=== PATIENT | female | born 1995 | race Caucasian/White ===

== ENCOUNTER 2017-05-25 12:50 | Emergency (ER) | payer OTHER ==
--- NOTE | 2017-05-25 13:58 | ED ---
General Adult HPI - General Chief complaint: Nausea/Vomiting/Diarrhea Stated complaint: Vomiting, chest pain x 3 days Time Seen by Provider: 05/25/17 13:25 Source: patient, RN notes reviewed Mode of arrival: ambulatory Limitations: no limitations - History of Present Illness Initial comments: Patient is a 21-year-old female who presents emergency room today with chief complaint chest pain over the last 2 days. She does admit that she recently miscarried. She states she was seen [facility] for this. States she had an ultrasound on there 2 days ago. She states she was discharged clear she is expressing some chest pain she describes it as sharp located in the upper chest. Denies any radiation. Does admit to some cough and congestion. Patient denies any other complaints at this time. States vaginal bleeding has decreased. Spotting at times. Denies with swelling or pain. Patient denies any recent fever, chills, shortness of breath, back pain, nausea or vomiting, numbness or tingling, dysuria or hematuria, constipation or diarrhea, headaches or visual changes, or any other complaints. - Related Data Home Medications Medication Instructions Recorded Confirmed Ibuprofen [Motrin] 400 mg PO Q6HR PRN 05/25/17 05/25/17 Previous Rx's Medication Instructions Recorded Ibuprofen [Motrin] 600 mg PO Q6HR PRN #40 day 05/25/17 Allergies Allergy/AdvReac Type Severity Reaction Status Date / Time Penicillins Allergy Unknown Verified 05/25/17 13:21 Review of Systems ROS Statement: Those systems with pertinent positive or pertinent negative responses have been documented in the HPI. ROS Other: All systems not noted in ROS Statement are negative. Past Medical History Past Medical History: No Reported History History of Any Multi-Drug Resistant Organisms: None Reported Past Surgical History: No Surgical Hx Reported Past Psychological History: No Psychological Hx Reported Smoking Status: Never smoker Past Alcohol Use History: None Reported Past Drug Use History: None Reported General Exam - General Exam Comments Initial Comments: General: The patient is awake and alert, in no distress, and does not appear acutely ill. Eye: Pupils are equal, round and reactive to light, extra-ocular movements are intact. No nystagmus. There is normal conjunctiva bilaterally. No signs of icterus. Ears, nose, mouth and throat: There are moist mucous membranes and no oral lesions. Neck: The neck is supple, there is no tenderness or JVD. Cardiovascular: There is a regular rate and rhythm. No murmur, rub or gallop is appreciated. Chest pain reproduced on palpation to the anterior chest wall. Respiratory: Lungs are clear to auscultation, respirations are non-labored, breath sounds are equal. No wheezes, stridor, rales, or rhonchi. Gastrointestinal: Soft, non-distended, non-tender abdomen without masses or organomegaly noted. There is no rebound or guarding present. No CVA tenderness. Bowel sounds are unremarkable. Musculoskeletal: Normal ROM, no tenderness. Strength 5/5. Sensation intact. Pulses equal bilaterally 2+. Neurological: A&O x 3. CN II-XII intact, There are no obvious motor or sensory deficits. Coordination appears grossly intact. Speech is normal. Skin: Skin is warm and dry and no rashes or lesions are noted. Psychiatric: Cooperative, appropriate mood & affect, normal judgment. Limitations: no limitations Course Vital Signs 05/25/17 05/25/17 13:18 14:59 Temperature 98.1 F 99.7 F H Pulse Rate 93 80 Respiratory 17 18 Rate Blood Pressure 110/89 135/61 O2 Sat by Pulse 97 96 Oximetry EKG Findings - EKG Comments: EKG Findings:: EKG performed at 1332: A 12-lead EKG was performed and interpreted by me as showing the following: Rate is 86, and rhythm is normal sinus. There are normal QRS complexes and normal R-wave progression. ST segments have no elevation or depression, and LA segments appear normal. Medical Decision Making - Medical Decision Making Patient reexamined at this time shows no signs of distress. She is resting comfortably text home. Patient's chest x-rays negative. Her labs been reviewed. Negative d-dimer. Negative cardiac enzymes. Her remaining labs unremarkable. Patient's ultrasound that was performed at [facility] on the May 23 2017 has been reviewed and shows no impression 1. No acute intrapelvic process. 2. Complex cystic lesion in the right ovary compatible with a dermoid. 3. No evidence of ovarian torsion. As read by radiologist Dr. Quiñonez. At this time patient will be discharged home advised follow-up the family doctor. Advised to continue with anti-inflammatories for pain. Advised to return if symptoms increase or worsen. - Lab Data Result diagrams: 05/25/17 13:53 05/25/17 13:53 Lab Results 05/25/17 05/25/17 05/25/17 Range/Units 13:53 13:53 13:53 WBC 10.9 (4.0-11.0) k/uL RBC 4.74 (3.80-5.40) m/uL Hgb 14.0 (11.4-16.0) gm/dL Hct 41.2 (34.0-46.0) % MCV 86.8 (80.0-100.0) fL MCH 29.5 (25.0-35.0) pg MCHC 34.0 (31.0-37.0) g/dL RDW 13.1 (11.5-15.5) % Plt Count 559 H (150-450) k/uL Neutrophils % 64 % Lymphocytes % 24 % Monocytes % 5 % Eosinophils % 4 % Basophils % 1 % Neutrophils # 7.0 (1.3-7.7) k/uL Lymphocytes # 2.6 (1.0-4.8) k/uL Monocytes # 0.6 (0-1.0) k/uL Eosinophils # 0.4 (0-0.7) k/uL Basophils # 0.1 (0-0.2) k/uL D-Dimer (<0.60) mg/L FEU Sodium 138 (137-145) mmol/L Potassium 4.7 (3.5-5.1) mmol/L Chloride 100 (98-107) mmol/L Carbon Dioxide 27 (22-30) mmol/L Anion Gap 11 mmol/L BUN 13 (7-17) mg/dL Creatinine 0.60 (0.52-1.04) mg/dL Est GFR (MDRD) Af Amer >60 (>60 ml/min/1.73 sqM) Est GFR (MDRD) Non-Af >60 (>60 ml/min/1.73 sqM) Glucose 96 (74-99) mg/dL Calcium 10.1 (8.4-10.2) mg/dL Total Bilirubin 0.4 (0.2-1.3) mg/dL AST 116 H (14-36) U/L ALT 150 H (9-52) U/L Alkaline Phosphatase 88 (38-126) U/L Total Creatine Kinase 104 (30-135) U/L CK-MB (CK-2) 0.6 (0.0-2.4) ng/mL CK-MB (CK-2) Rel Index 0.6 Troponin I <0.012 (0.000-0.034) ng/mL Total Protein 8.1 (6.3-8.2) g/dL Albumin 4.4 (3.5-5.0) g/dL Urine HCG, Qual (Not Detectd) 05/25/17 05/25/17 Range/Units 13:53 14:23 WBC (4.0-11.0) k/uL RBC (3.80-5.40) m/uL Hgb (11.4-16.0) gm/dL Hct (34.0-46.0) % MCV (80.0-100.0) fL MCH (25.0-35.0) pg MCHC (31.0-37.0) g/dL RDW (11.5-15.5) % Plt Count (150-450) k/uL Neutrophils % % Lymphocytes % % Monocytes % % Eosinophils % % Basophils % % Neutrophils # (1.3-7.7) k/uL Lymphocytes # (1.0-4.8) k/uL Monocytes # (0-1.0) k/uL Eosinophils # (0-0.7) k/uL Basophils # (0-0.2) k/uL D-Dimer 0.42 (<0.60) mg/L FEU Sodium (137-145) mmol/L Potassium (3.5-5.1) mmol/L Chloride (98-107) mmol/L Carbon Dioxide (22-30) mmol/L Anion Gap mmol/L BUN (7-17) mg/dL Creatinine (0.52-1.04) mg/dL Est GFR (MDRD) Af Amer (>60 ml/min/1.73 sqM) Est GFR (MDRD) Non-Af (>60 ml/min/1.73 sqM) Glucose (74-99) mg/dL Calcium (8.4-10.2) mg/dL Total Bilirubin (0.2-1.3) mg/dL AST (14-36) U/L ALT (9-52) U/L Alkaline Phosphatase (38-126) U/L Total Creatine Kinase (30-135) U/L CK-MB (CK-2) (0.0-2.4) ng/mL CK-MB (CK-2) Rel Index Troponin I (0.000-0.034) ng/mL Total Protein (6.3-8.2) g/dL Albumin (3.5-5.0) g/dL Urine HCG, Qual Not Detected (Not Detectd) Disposition Clinical Impression: Costochondritis, acute Disposition: HOME SELF-CARE Condition: Good Instructions: Costochondritis (ED) Additional Instructions: Please use medication as discussed. Please follow-up with family doctor in the next 2 days of symptoms have not improved. Please return to emergency room if the symptoms increase or worsen or for any other concerns. Prescriptions: Ibuprofen [Motrin] 600 mg PO Q6HR PRN #40 day PRN Reason: Pain Referrals: None,Stated [Primary Care Provider] - 1-2 days Felicitas Dickinson MD [REFERRING] - 1-2 days Time of Disposition: 15:38
[2017-05-25 14:21] LABS: Basophils # (A) 0.1 k/uL (0-0.2); Basophils % (A) 1 %; CH 30.3; CHCM 35.1; Eosinophils # (A) 0.4 k/uL (0-0.7); Eosinophils % (A) 4 %; HCT 41.2 % (34.0-46.0); HDW 2.71; Luc # (Auto) 0.24; Luc % (Auto) 2; Lymphocytes # (A) 2.6 k/uL (1.0-4.8); Lymphocytes % (A) 24 %; MCH 29.5 pg (25.0-35.0); MCV 86.8 fL (80.0-100.0); Monocytes # (A) 0.6 k/uL (0-1.0); Monocytes % (A) 5 %; Neutrophils % (A) 64 %; RBC 4.74 m/uL (3.80-5.40); RDW 13.1 % (11.5-15.5); WBC 10.9 k/uL (4.0-11.0); WBC (Perox) 9.86
[2017-05-25 14:32] LABS: ALT 150 U/L (9-52); AST 116 U/L (14-36); Alkaline Phosphatase 88 U/L (38-126); Anion Gap 11 mmol/L; Blood Urea Nitrogen 13 mg/dL (7-17); Calcium 10.1 mg/dL (8.4-10.2); Carbon Dioxide 27 mmol/L (22-30); Chloride 100 mmol/L (98-107); Glucose 96 mg/dL (74-99); Non-African American GFR(MDRD) >60 (>60 ml/min/1.73 sqM); Potassium 4.7 mmol/L (3.5-5.1); Sodium 138 mmol/L (137-145); Total Bilirubin 0.4 mg/dL (0.2-1.3); Total Protein 8.1 g/dL (6.3-8.2)
[2017-05-25 14:42] LABS: Creatine Kinase 104 U/L (30-135)
[2017-05-25 14:56] LABS: Creatine Kinase MB 0.6 ng/mL (0.0-2.4); Troponin I <0.012 ng/mL (0.000-0.034)
[2017-05-25 15:01] VITALS: BP 135/61; PULSE 80; RESP 18; TEMP 99.7
--- NOTE | 2017-05-25 15:31 | XR ---
EXAMINATION TYPE: XR chest 2V DATE OF EXAM: 05/25/2017 COMPARISON: NONE INDICATION: Cough TECHNIQUE: Frontal and lateral views of the chest are obtained. FINDINGS: The heart size is normal. The pulmonary vasculature is normal. The lungs are clear. IMPRESSION: 1. No acute pulmonary process.
== END 2017-05-25 15:52 | disposition home or self-care (01) ==
LOC: EC 12:50
DX: M94.0 Chondrocostal junction syndrome [Tietze] (principal); Z88.0 Allergy status to penicillin
CPT/HCPCS: 36415; 71020; 80053; 81025; 82550; 82553; 84484; 85025; 85379; 93005; 99284

== ENCOUNTER 2017-05-26 22:30 | Emergency (ER) | payer OTHER ==
[2017-05-27] MEDS ORDERED: SODIUM CHLORIDE 0.9% 1,000 ML IV STA (00:01)
[2017-05-27] MEDS ORDERED: DEXAMETHASONE SOD PHOSPHATE 10 MG/ML 1 ML VIAL IM STA (00:01)
[2017-05-27] MEDS ORDERED: ACETAMINOPHEN TAB 325 MG TAB PO STA (00:01)
[2017-05-27] MEDS ORDERED: IPRATROPIUM-ALBUTEROL 3 ML NEB INHALATION STA (00:01)
[2017-05-27 00:33] LABS: Appearance,Urine Clear (Clear); Bacteria,Urine Few /hpf; Bilirubin,Urine Negative (Negative); Blood,Urine Moderate (Negative); Color,Urine Light Yellow; Glucose,Urine (UA) Negative (Negative); Ketones,Urine Negative (Negative); Leukocyte Esterase,Urine Moderate (Negative); Nitrite,Urine Negative (Negative); Protein,Urine Negative (Negative); RBC,Urine 15 /hpf (0-5); Specific Gravity,Urine 1.006 (1.001-1.035); Squamous Epithelial Cell,Urine 2 /hpf (0-4); Urobilinogen,Urine <2.0 mg/dL (<2.0); WBC,Urine 7 /hpf (0-5)
[2017-05-27 00:46] LABS: Basophils # (A) 0.1 k/uL (0-0.2); Basophils % (A) 1 %; Eosinophils # (A) 0.4 k/uL (0-0.7); Eosinophils % (A) 3 %; HCT 41.7 % (34.0-46.0); HGB 13.9 gm/dL (11.4-16.0); Lymphocytes # (A) 2.6 k/uL (1.0-4.8); Lymphocytes % (A) 18 %; MCHC 33.4 g/dL (31.0-37.0); MCV 86.9 fL (80.0-100.0); Mean Platelet Volume 7.6; Monocytes # (A) 0.6 k/uL (0-1.0); Monocytes % (A) 4 %; Neutrophils # (A) 10.7 k/uL (1.3-7.7); Neutrophils % (A) 73 %; Platelet Count 557 k/uL (150-450); RDW 14.4 % (11.5-15.5); WBC 14.6 k/uL (4.0-11.0)
[2017-05-27 00:56] LABS: ALT 120 U/L (9-52); AST 76 U/L (14-36); Albumin 4.7 g/dL (3.5-5.0); Alkaline Phosphatase 89 U/L (38-126); Anion Gap 13 mmol/L; Blood Urea Nitrogen 11 mg/dL (7-17); Calcium 10.4 mg/dL (8.4-10.2); Carbon Dioxide 26 mmol/L (22-30); Chloride 100 mmol/L (98-107); Glucose 93 mg/dL (74-99); Potassium 4.5 mmol/L (3.5-5.1); Sodium 139 mmol/L (137-145); Total Bilirubin 0.5 mg/dL (0.2-1.3); Total Protein 8.2 g/dL (6.3-8.2)
--- NOTE | 2017-05-27 01:04 | XR ---
EXAMINATION TYPE: XR chest 2V DATE OF EXAM: 05/27/2017 COMPARISON: 05/17/2017 HISTORY: Cough TECHNIQUE: Frontal and lateral views of the chest are obtained. FINDINGS: There is a large area of linear density in the superior segment right lower lobe consisten t with infiltrate and atelectasis. The left lung is clear. Heart and mediastinum are normal. Pulmonar y vascularity is normal. IMPRESSION: There is new infiltrate and atelectasis in the right lower lobe compared to recent exam. Normal heart.
--- NOTE | 2017-05-27 01:13 | ED ---
General Adult HPI - General Chief complaint: Upper Respiratory Infection Stated complaint: Abd pain Time Seen by Provider: 05/26/17 23:46 Source: patient, RN notes reviewed, old records reviewed Mode of arrival: ambulatory Limitations: no limitations - History of Present Illness Initial comments: 21-year-old female presents for evaluation of cough, and bilateral rib pain worse with coughing. Symptoms have been ongoing for the past 24 days. She has had productive cough, nasal congestion, mild sore throat, laryngitis, diffuse body aches, body aches are worse in her posterior chest worse with coughing. Denies any central chest pain. Patient has had nausea and vomiting although this is improving. She was seen in the emergency department yesterday with similar symptoms. Patient has past medical history of asthma. - Related Data Home Medications Medication Instructions Recorded Confirmed Ibuprofen [Motrin] 200 mg PO Q6HR PRN 05/25/17 05/26/17 Albuterol Inhaler [Ventolin Hfa 1 - 2 puff INHALATION Q6HR PRN 05/26/17 05/26/17 Inhaler] Previous Rx's Medication Instructions Recorded Albuterol Inhaler [Ventolin Hfa 1 - 2 puff INHALATION Q4HR PRN #1 05/27/17 Inhaler] inhaler Azithromycin [Zithromax Z-pack] 0 mg PO DIRECTED #6 tab 05/27/17 methylPREDNISolone Dose Pack 4 mg PO DIRECTED #21 package 05/27/17 [Medrol Dose Pack] Allergies Allergy/AdvReac Type Severity Reaction Status Date / Time Penicillins Allergy Unknown Verified 05/26/17 23:26 Review of Systems ROS Statement: Those systems with pertinent positive or pertinent negative responses have been documented in the HPI. ROS Other: All systems not noted in ROS Statement are negative. Past Medical History Past Medical History: No Reported History History of Any Multi-Drug Resistant Organisms: None Reported Past Surgical History: Tonsillectomy Past Psychological History: No Psychological Hx Reported Smoking Status: Former smoker Past Alcohol Use History: None Reported Past Drug Use History: None Reported General Exam Limitations: no limitations General appearance: alert, in no apparent distress Head exam: Present: atraumatic, normocephalic Eye exam: Present: normal appearance, PERRL ENT exam: Present: other (Nasal congestion and rhinorrhea) Neck exam: Present: normal inspection, full ROM. Absent: tenderness, meningismus Respiratory exam: Present: other (Bronchospastic cough). Absent: respiratory distress Cardiovascular Exam: Present: normal rhythm, tachycardia GI/Abdominal exam: Present: soft. Absent: distended, tenderness Extremities exam: Present: normal inspection, normal capillary refill. Absent: pedal edema Neurological exam: Present: alert, oriented X3, CN II-XII intact. Absent: motor sensory deficit Psychiatric exam: Present: normal affect, normal mood Skin exam: Present: warm, dry, intact. Absent: cyanosis, diaphoretic Course Vital Signs 05/26/17 05/26/17 05/27/17 22:38 23:30 00:29 Temperature 98.6 F Pulse Rate 128 H 84 Respiratory 18 20 Rate Blood Pressure 129/87 O2 Sat by Pulse 98 Oximetry 05/27/17 05/27/17 00:37 01:26 Temperature 98.3 F Pulse Rate 96 111 H Respiratory 17 Rate Blood Pressure 125/58 O2 Sat by Pulse 95 Oximetry Medical Decision Making - Medical Decision Making 21-year-old female presenting with chief complaint of cough. Patient has associated symptoms including rhinorrhea, sore throat, laryngitis and diffuse myalgia. Laboratory studies reveal white blood cell count 14.6, mild elevated AST and ALTs which is improved from yesterday's laboratory studies, urinalysis is positive for 15 rbc's over the patient is currently on her menstrual cycle, influenza is negative. D-dimer from yesterday was reviewed, this was negative. Chest x-ray shows right lower lobe infiltrate consistent with pneumonia. Patient is an asthmatic, she has bronchospastic cough, otherwise good air entry. She is given albuterol, steroids, IV fluids in the emergency department. Vital signs improved including normalized heart rate. She will be started on azithromycin for community acquired pneumonia. She is given steroids and refill of her albuterol prescription. Diagnosis: Community acquired pneumonia, asthma - Lab Data Result diagrams: 05/27/17 00:32 05/27/17 00:32 Lab Results 05/27/17 05/27/17 05/27/17 Range/Units 00:18 00:18 00:24 WBC (4.0-11.0) k/uL RBC (3.80-5.40) m/uL Hgb (11.4-16.0) gm/dL Hct (34.0-46.0) % MCV (80.0-100.0) fL MCH (25.0-35.0) pg MCHC (31.0-37.0) g/dL RDW (11.5-15.5) % Plt Count (150-450) k/uL Neutrophils % % Lymphocytes % % Monocytes % % Eosinophils % % Basophils % % Neutrophils # (1.3-7.7) k/uL Lymphocytes # (1.0-4.8) k/uL Monocytes # (0-1.0) k/uL Eosinophils # (0-0.7) k/uL Basophils # (0-0.2) k/uL Sodium (137-145) mmol/L Potassium (3.5-5.1) mmol/L Chloride (98-107) mmol/L Carbon Dioxide (22-30) mmol/L Anion Gap mmol/L BUN (7-17) mg/dL Creatinine (0.52-1.04) mg/dL Est GFR (MDRD) Af Amer (>60 ml/min/1.73 sqM) Est GFR (MDRD) Non-Af (>60 ml/min/1.73 sqM) Glucose (74-99) mg/dL Calcium (8.4-10.2) mg/dL Total Bilirubin (0.2-1.3) mg/dL AST (14-36) U/L ALT (9-52) U/L Alkaline Phosphatase (38-126) U/L Total Protein (6.3-8.2) g/dL Albumin (3.5-5.0) g/dL Urine Color Light Yellow Urine Appearance Clear (Clear) Urine pH 6.0 (5.0-8.0) Ur Specific [place] 1.006 (1.001-1.035) Urine Protein Negative (Negative) Urine Glucose (UA) Negative (Negative) Urine Ketones Negative (Negative) Urine Blood Moderate H (Negative) Urine Nitrite Negative (Negative) Urine Bilirubin Negative (Negative) Urine Urobilinogen <2.0 (<2.0) mg/dL Ur Leukocyte Esterase Moderate H (Negative) Urine RBC 15 H (0-5) /hpf Urine WBC 7 H (0-5) /hpf Ur Squamous Epith Cells 2 (0-4) /hpf Urine Bacteria Few H (None) /hpf Urine HCG, Qual Not Detected (Not Detectd) Influenza Type A RNA Not Detected (Not Detectd) Influenza Type B (PCR) Not Detected (Not Detectd) 05/27/17 05/27/17 Range/Units 00:32 00:32 WBC 14.6 H (4.0-11.0) k/uL RBC 4.80 (3.80-5.40) m/uL Hgb 13.9 (11.4-16.0) gm/dL Hct 41.7 (34.0-46.0) % MCV 86.9 (80.0-100.0) fL MCH 29.0 (25.0-35.0) pg MCHC 33.4 (31.0-37.0) g/dL RDW 14.4 (11.5-15.5) % Plt Count 557 H (150-450) k/uL Neutrophils % 73 % Lymphocytes % 18 % Monocytes % 4 % Eosinophils % 3 % Basophils % 1 % Neutrophils # 10.7 H (1.3-7.7) k/uL Lymphocytes # 2.6 (1.0-4.8) k/uL Monocytes # 0.6 (0-1.0) k/uL Eosinophils # 0.4 (0-0.7) k/uL Basophils # 0.1 (0-0.2) k/uL Sodium 139 (137-145) mmol/L Potassium 4.5 (3.5-5.1) mmol/L Chloride 100 (98-107) mmol/L Carbon Dioxide 26 (22-30) mmol/L Anion Gap 13 mmol/L BUN 11 (7-17) mg/dL Creatinine 0.70 (0.52-1.04) mg/dL Est GFR (MDRD) Af Amer >60 (>60 ml/min/1.73 sqM) Est GFR (MDRD) Non-Af >60 (>60 ml/min/1.73 sqM) Glucose 93 (74-99) mg/dL Calcium 10.4 H (8.4-10.2) mg/dL Total Bilirubin 0.5 (0.2-1.3) mg/dL AST 76 H (14-36) U/L ALT 120 H (9-52) U/L Alkaline Phosphatase 89 (38-126) U/L Total Protein 8.2 (6.3-8.2) g/dL Albumin 4.7 (3.5-5.0) g/dL Urine Color Urine Appearance (Clear) Urine pH (5.0-8.0) Ur Specific [place] (1.001-1.035) Urine Protein (Negative) Urine Glucose (UA) (Negative) Urine Ketones (Negative) Urine Blood (Negative) Urine Nitrite (Negative) Urine Bilirubin (Negative) Urine Urobilinogen (<2.0) mg/dL Ur Leukocyte Esterase (Negative) Urine RBC (0-5) /hpf Urine WBC (0-5) /hpf Ur Squamous Epith Cells (0-4) /hpf Urine Bacteria (None) /hpf Urine HCG, Qual (Not Detectd) Influenza Type A RNA (Not Detectd) Influenza Type B (PCR) (Not Detectd) Disposition Clinical Impression: Asthma, Community acquired bacterial pneumonia Disposition: HOME SELF-CARE Condition: Good Instructions: Pneumonia (ED) Prescriptions: Albuterol Inhaler [Ventolin Hfa Inhaler] 1 - 2 puff INHALATION Q4HR PRN #1 inhaler PRN Reason: Shortness Of Breath Azithromycin [Zithromax Z-pack] 0 mg PO DIRECTED #6 tab methylPREDNISolone Dose Pack [Medrol Dose Pack] 4 mg PO DIRECTED #21 package Referrals: None,Stated [Primary Care Provider] - 1-2 days Felicitas Dickinson MD [REFERRING] - 1-2 days Time of Disposition: 01:13
[2017-05-27 01:29] VITALS: BP 125/58; PULSE 111; RESP 17; TEMP 98.3
== END 2017-05-27 01:32 | disposition home or self-care (01) ==
LOC: EC 22:30
DX: J45.909 Unspecified asthma, uncomplicated (principal); J15.9 Unspecified bacterial pneumonia; R74.0 Nonspecific elevation of levels of transaminase and lactic acid dehydrogenase [LDH]; R00.0 Tachycardia, unspecified; J04.0 Acute laryngitis; J02.9 Acute pharyngitis, unspecified; Z87.891 Personal history of nicotine dependence; Z88.0 Allergy status to penicillin; Z90.89 Acquired absence of other organs
CPT/HCPCS: 36415; 94640; 80053; 85025; 81001; 81025; 87502; 71020; 99284; 96360; 96372; J1100

== ENCOUNTER 2017-07-05 22:51 | Emergency (ER) | payer OTHER ==
--- NOTE | 2017-07-05 23:18 | ED ---
General Adult HPI - General Chief complaint: Abdominal Pain Stated complaint: Umbilical Pain Time Seen by Provider: 07/05/17 23:02 Source: patient, RN notes reviewed Mode of arrival: ambulatory Limitations: no limitations - History of Present Illness Initial comments: 21-year-old female presents emergency department with a chief complaint of suprapubic abdominal pain and burning with urination. Patient states started yesterday. Patient states that it has been constant. She denies any fever or chills. She states she has had some vomiting. She denies any flank pain or back pain. She was concerned due to her continued discomfort so she thought that she should be evaluated. Patient states she's not currently having any other symptoms.Patient denies any recent fever, chills, shortness of breath, chest pain, back pain, numbness or tingling, hematuria, constipation or diarrhea , headaches or visual changes, or any other current symptoms. - Related Data Home Medications Medication Instructions Recorded Confirmed Acetaminophen [Tylenol Extra 500 mg PO Q6H PRN 07/05/17 07/05/17 Strength] Previous Rx's Medication Instructions Recorded Cephalexin [Keflex] 500 mg PO BID 7 Days cap 07/05/17 Phenazopyridine [Pyridium] 100 mg PO TID #9 tablet 07/05/17 Allergies Allergy/AdvReac Type Severity Reaction Status Date / Time Penicillins Allergy Unknown Verified 07/05/17 23:12 Review of Systems ROS Statement: Those systems with pertinent positive or pertinent negative responses have been documented in the HPI. ROS Other: All systems not noted in ROS Statement are negative. Past Medical History Past Medical History: No Reported History History of Any Multi-Drug Resistant Organisms: None Reported Past Surgical History: Tonsillectomy Past Psychological History: No Psychological Hx Reported Smoking Status: Former smoker Past Alcohol Use History: None Reported Past Drug Use History: None Reported General Exam - General Exam Comments Initial Comments: General: The patient is awake and alert, in no distress, and does not appear acutely ill. Eye: Pupils are equal, round and reactive to light, extra-ocular movements are intact; there is normal conjunctiva bilaterally. No signs of icterus. Ears, nose, mouth and throat: There are moist mucous membranes and no oral lesions. Neck: The neck is supple, there is no tenderness. Cardiovascular: There is a regular rate and rhythm. No murmur, rub or gallop is appreciated. Respiratory: Lungs are clear to auscultation, respirations are non-labored, breath sounds are equal. No wheezes, stridor, rales, or rhonchi. Gastrointestinal: Soft, non-distended, suprapubic tenderness of the abdomen without masses or organomegaly noted. There is no rebound or guarding present. No CVA tenderness. Bowel sounds are unremarkable. Back: There is no tenderness to palpation in the midline. There is no obvious deformity. No rashes noted. Musculoskeletal: Normal ROM, no tenderness, There is no pedal edema. There is no calf tenderness or swelling. Sensation intact. Pulses equal bilaterally 2+. Neurological: CN II-XII intact, There are no obvious motor or sensory deficits. Coordination appears grossly intact. Speech is normal. Skin: Skin is warm and dry and no rashes or lesions are noted. Psychiatric: Cooperative, appropriate mood & affect, normal judgment. Limitations: no limitations Course Vital Signs 07/05/17 22:57 Temperature 98.6 F Pulse Rate 91 Respiratory 2 L Rate Blood Pressure 128/58 O2 Sat by Pulse 99 Oximetry Medical Decision Making - Medical Decision Making 21 yo female presents for burning with urination with abdominal discomfort. At this time patient does show suspicion for UTI. This time we will start patient antibiotics. We discussed follow-up with the [employer]. We discussed return parameters all questions. Patient stated that he understood and he is agreement this plan. All questions have been answered. This time he will be discharged home. - Lab Data Lab Results 07/05/17 07/05/17 Range/Units 23:18 23:18 Urine Color Yellow Urine Appearance Cloudy H (Clear) Urine pH 6.0 (5.0-8.0) Ur Specific [place] 1.021 (1.001-1.035) Urine Protein 1+ H (Negative) Urine Glucose (UA) Negative (Negative) Urine Ketones Negative (Negative) Urine Blood Moderate H (Negative) Urine Nitrite Negative (Negative) Urine Bilirubin Negative (Negative) Urine Urobilinogen 2.0 (<2.0) mg/dL Ur Leukocyte Esterase Moderate H (Negative) Urine RBC 5 (0-5) /hpf Urine WBC 39 H (0-5) /hpf Ur Squamous Epith Cells 10 H (0-4) /hpf Urine Bacteria Moderate H (None) /hpf Urine Mucus Few H (None) /hpf Urine HCG, Qual Not Detected (Not Detectd) Disposition Clinical Impression: UTI (urinary tract infection) Disposition: HOME SELF-CARE Condition: Stable Instructions: Urinary Tract Infection in Women (ED) Additional Instructions: Please use medication as discussed. Please follow up with family doctor if symptoms have not improved over the next two days. Please return to the emergency room if your symptoms increase or worsen or for any other concerns. Prescriptions: Cephalexin [Keflex] 500 mg PO BID 7 Days cap Phenazopyridine [Pyridium] 100 mg PO TID #9 tablet Referrals: Sydni Pedroza MD [REFERRING] - 1-2 days Time of Disposition: 23:46
[2017-07-05 23:39] LABS: Appearance,Urine Cloudy (Clear); Bacteria,Urine Moderate /hpf; Bilirubin,Urine Negative (Negative); Blood,Urine Moderate (Negative); Color,Urine Yellow; Glucose,Urine (UA) Negative (Negative); Ketones,Urine Negative (Negative); Leukocyte Esterase,Urine Moderate (Negative); Mucus,Urine Few /hpf; Nitrite,Urine Negative (Negative); Protein,Urine 1+ (Negative); RBC,Urine 5 /hpf (0-5); Specific Gravity,Urine 1.021 (1.001-1.035); Squamous Epithelial Cell,Urine 10 /hpf (0-4); WBC,Urine 39 /hpf (0-5)
[2017-07-05] MEDS ORDERED: PHENAZOPYRIDINE 100 MG TAB PO STA (23:47)
[2017-07-06 00:11] VITALS: BP 111/55; PULSE 82; RESP 18; TEMP 98.5
== END 2017-07-06 00:09 | disposition home or self-care (01) ==
LOC: EC 22:51
DX: N39.0 Urinary tract infection, site not specified (principal); Z87.891 Personal history of nicotine dependence; Z88.0 Allergy status to penicillin
CPT/HCPCS: 81001; 81025; 87086; 99284

== ENCOUNTER 2017-07-06 05:38 | Emergency (ER) | payer OTHER ==
--- NOTE | 2017-07-06 06:45 | ED ---
Upper Extremity HPI - General Chief Complaint: Extremity Injury, Upper Stated Complaint: Finger pain Time Seen by Provider: 07/06/17 05:58 Source: patient Mode of arrival: ambulatory Limitations: no limitations - History of Present Illness Initial Comments: 21 years old female complaining about left index finger pain she said she was helping her children at home she got her finger caught in the swelling that was yesterday no other injury at all review of system is unremarkable otherwise - Related Data Home Medications Medication Instructions Recorded Confirmed Acetaminophen [Tylenol Extra 500 mg PO Q6H PRN 07/05/17 07/05/17 Strength] Previous Rx's Medication Instructions Recorded Cephalexin [Keflex] 500 mg PO BID 7 Days cap 07/05/17 Phenazopyridine [Pyridium] 100 mg PO TID #9 tablet 07/05/17 Allergies Allergy/AdvReac Type Severity Reaction Status Date / Time Penicillins Allergy Unknown Verified 07/06/17 06:08 Review of Systems ROS Statement: Those systems with pertinent positive or pertinent negative responses have been documented in the HPI. ROS Other: All systems not noted in ROS Statement are negative. Past Medical History Past Medical History: No Reported History History of Any Multi-Drug Resistant Organisms: None Reported Past Surgical History: Tonsillectomy Past Psychological History: No Psychological Hx Reported Smoking Status: Former smoker Past Alcohol Use History: None Reported Past Drug Use History: None Reported General Exam - General Exam Comments Initial Comments: General: The patient is awake and alert, in no distress, and does not appear acutely ill. Skin: Skin is warm and dry and no rashes or lesions are noted. Cardiovascular: There is a regular rate and rhythm. No murmur, rub or gallop is appreciated. Respiratory: To auscultation bilateral, no wheezing no rhonchi no distress respiratory conte noticed Gastrointestinal: Soft, non-distended, non-tender abdomen without masses or organomegaly noted. There is no rebound or guarding present. Bowel sounds are unremarkable. Back: There is no tenderness to palpation in the midline. There is no obvious deformity. Musculoskeletal: Noticed some mild swelling and tenderness at the distal half of the left index finger, no obvious deformity noticed, no erythema, no obvious infection range of motion is good capillary refills are within normal range no motor or sensory deficits noticed. Neurological: CN II-XII intact, Cranial nerves III through XII are intact. There are no obvious motor or sensory deficits. Coordination appears grossly intact. Speech is normal. Psychiatric: Cooperative, appropriate mood & affect, normal judgment. Limitations: no limitations Course Vital Signs 07/06/17 05:59 Temperature 97.7 F Pulse Rate 71 Respiratory 18 Rate Blood Pressure 120/66 O2 Sat by Pulse 97 Oximetry - Reevaluation(s) Reevaluation #1: An x-ray was reviewed no obvious fracture noticed findings were discussed with the patient she'll go home using Motrin as needed 07/06/17 07:06 Disposition Clinical Impression: Hand contusion Disposition: HOME SELF-CARE Condition: Good Instructions: Hand Sprain (ED) Referrals: None,Stated [Primary Care Provider] - 1-2 days
--- NOTE | 2017-07-06 06:58 | XR ---
EXAM: XR Left Finger(s), 2 or More Views CLINICAL HISTORY: Reason: Rule out fracture TECHNIQUE: Frontal, lateral and oblique views of finger(s) of the left hand. COMPARISON: None. FINDINGS: Bones/joints: Unremarkable. No acute fracture. No dislocation. Soft tissues: Mild soft tissue swelling of the left second digit. No radiopaque foreign body. IMPRESSION: No acute findings.
[2017-07-06 08:16] VITALS: BP 123/60; PULSE 72; RESP 18; TEMP 98.2
== END 2017-07-06 07:11 | disposition home or self-care (01) ==
LOC: EC 05:38
DX: S60.022A Contusion of left index finger without damage to nail, initial encounter (principal); Z87.891 Personal history of nicotine dependence; Z88.0 Allergy status to penicillin; X58.XXXA Exposure to other specified factors, initial encounter; Y92.009 Unspecified place in unspecified non-institutional (private) residence as the place of occurrence of the external cause
CPT/HCPCS: 99283

== ENCOUNTER 2017-08-31 13:49 | Emergency (ER) | payer OTHER ==
[2017-08-31 14:28] VITALS: RESP 18
[2017-08-31 15:47] LABS: Basophils # (A) 0.1 k/uL (0-0.2); Basophils % (A) 1 %; Eosinophils # (A) 0.4 k/uL (0-0.7); Eosinophils % (A) 4 %; HCT 42.2 % (34.0-46.0); HGB 14.1 gm/dL (11.4-16.0); Lymphocytes # (A) 3.3 k/uL (1.0-4.8); Lymphocytes % (A) 27 %; MCH 28.8 pg (25.0-35.0); MCHC 33.5 g/dL (31.0-37.0); Mean Platelet Volume 7.1; Monocytes # (A) 0.4 k/uL (0-1.0); Monocytes % (A) 3 %; Neutrophils # (A) 7.8 k/uL (1.3-7.7); Neutrophils % (A) 64 %; Platelet Count 625 k/uL (150-450); RBC 4.91 m/uL (3.80-5.40); RDW 13.4 % (11.5-15.5); WBC 12.2 k/uL (4.0-11.0)
[2017-08-31 15:55] LABS: Appearance,Urine Cloudy (Clear); Bacteria,Urine Rare /hpf; Bilirubin,Urine Negative (Negative); Blood,Urine Small (Negative); Color,Urine Yellow; Glucose,Urine (UA) Negative (Negative); Ketones,Urine Negative (Negative); Leukocyte Esterase,Urine Small (Negative); Mucus,Urine Rare /hpf; Nitrite,Urine Positive (Negative); PH, Urine 6.5 (5.0-8.0); Protein,Urine Trace (Negative); RBC,Urine 3 /hpf (0-5); Squamous Epithelial Cell,Urine 1 /hpf (0-4); Urobilinogen,Urine <2.0 mg/dL (<2.0); WBC,Urine 11 /hpf (0-5)
[2017-08-31 16:01] LABS: Anion Gap 14 mmol/L; Blood Urea Nitrogen 13 mg/dL (7-17); Calcium 9.7 mg/dL (8.4-10.2); Carbon Dioxide 27 mmol/L (22-30); Chloride 101 mmol/L (98-107); Glucose 122 mg/dL (74-99); Potassium 4.2 mmol/L (3.5-5.1); Sodium 142 mmol/L (137-145)
[2017-08-31 16:17] LABS: HCG,Quantitative Serum <2.4 mIU/mL
[2017-08-31] MEDS ORDERED: cefTRIAXone IN SWFI 1,000 MG/10 ML SYRINGE IVP STA (16:18)
--- NOTE | 2017-08-31 16:36 | ED ---
Female Urogenital HPI - General Chief complaint: Vaginal Bleeding Stated complaint: Vaginal bleeding/ Poss Miscarriage Time Seen by Provider: 08/31/17 15:03 Source: patient, RN notes reviewed Mode of arrival: ambulatory Limitations: no limitations - History of Present Illness Initial comments: 21-year-old female presents emergency Department chief complaint of abdominal cramping, passing large blood clot. Patient states that she is concerned that she may have had a miscarriage. She states it looks like a fetus. Patient states that she had no prior pregnancies patient states her last menstrual cycle 2 days long. She states his symptoms have been last night she feels normal this time denies any headache, dizziness, chest pain or shortness breath denies any nausea vomiting. No dysuria no hematuria Last Menstrual Period: 08/29/17 - Related Data Home Medications Medication Instructions Recorded Confirmed Acetaminophen Tab [Tylenol Tab] 650 mg PO Q4H PRN 08/31/17 08/31/17 Previous Rx's Medication Instructions Recorded Ciprofloxacin HCl [Cipro] 500 mg PO Q12HR #10 tablet 08/31/17 Allergies Allergy/AdvReac Type Severity Reaction Status Date / Time Penicillins Allergy Unknown Verified 08/31/17 15:10 Review of Systems ROS Statement: Those systems with pertinent positive or pertinent negative responses have been documented in the HPI. ROS Other: All systems not noted in ROS Statement are negative. Past Medical History Past Medical History: No Reported History History of Any Multi-Drug Resistant Organisms: None Reported Past Surgical History: Tonsillectomy Past Psychological History: No Psychological Hx Reported Smoking Status: Current every day smoker Past Alcohol Use History: None Reported Past Drug Use History: None Reported General Exam Limitations: no limitations General appearance: alert, in no apparent distress Neck exam: Present: normal inspection, full ROM. Absent: tenderness, meningismus, lymphadenopathy Respiratory exam: Present: normal lung sounds bilaterally. Absent: respiratory distress, wheezes, rales, rhonchi, stridor Cardiovascular Exam: Present: regular rate, normal rhythm, normal heart sounds. Absent: systolic murmur, diastolic murmur, rubs, gallop, clicks GI/Abdominal exam: Present: soft, normal bowel sounds. Absent: distended, tenderness, guarding, rebound, rigid Back exam: Absent: CVA tenderness (R), CVA tenderness (L) Skin exam: Present: warm, dry, intact, normal color. Absent: rash Course Vital Signs 08/31/17 14:25 Temperature 98.6 F Pulse Rate 81 Respiratory 18 Rate Blood Pressure 134/79 O2 Sat by Pulse 99 Oximetry Medical Decision Making - Medical Decision Making 21-year-old female presents from for possible miscarriage. Patient has a negative hCG less than 2.4. Patient ultrasound shows complex ovarian cyst versus mass. 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 Patient has no abdominal pain at this time. Patient defers pelvic exam. Patient does have urinary tract infection was given Rocephin will follow-up for recheck and will be discharged on antibiotics. - Lab Data Result diagrams: 08/31/17 15:30 08/31/17 15:30 Lab Results 08/31/17 08/31/17 08/31/17 Range/Units 15:30 15:30 15:30 WBC 12.2 H (4.0-11.0) k/uL RBC 4.91 (3.80-5.40) m/uL Hgb 14.1 (11.4-16.0) gm/dL Hct 42.2 (34.0-46.0) % MCV 86.0 (80.0-100.0) fL MCH 28.8 (25.0-35.0) pg MCHC 33.5 (31.0-37.0) g/dL RDW 13.4 (11.5-15.5) % Plt Count 625 H (150-450) k/uL Neutrophils % 64 % Lymphocytes % 27 % Monocytes % 3 % Eosinophils % 4 % Basophils % 1 % Neutrophils # 7.8 H (1.3-7.7) k/uL Lymphocytes # 3.3 (1.0-4.8) k/uL Monocytes # 0.4 (0-1.0) k/uL Eosinophils # 0.4 (0-0.7) k/uL Basophils # 0.1 (0-0.2) k/uL Sodium 142 (137-145) mmol/L Potassium 4.2 (3.5-5.1) mmol/L Chloride 101 (98-107) mmol/L Carbon Dioxide 27 (22-30) mmol/L Anion Gap 14 mmol/L BUN 13 (7-17) mg/dL Creatinine 0.53 (0.52-1.04) mg/dL Est GFR (CKD-EPI)AfAm >90 (>60 ml/min/1.73 sqM) Est GFR (CKD-EPI)NonAf >90 (>60 ml/min/1.73 sqM) Glucose 122 H (74-99) mg/dL Calcium 9.7 (8.4-10.2) mg/dL HCG, Quant <2.4 mIU/mL Urine Color Urine Appearance (Clear) Urine pH (5.0-8.0) Ur Specific [place] (1.001-1.035) Urine Protein (Negative) Urine Glucose (UA) (Negative) Urine Ketones (Negative) Urine Blood (Negative) Urine Nitrite (Negative) Urine Bilirubin (Negative) Urine Urobilinogen (<2.0) mg/dL Ur Leukocyte Esterase (Negative) Urine RBC (0-5) /hpf Urine WBC (0-5) /hpf Ur Squamous Epith Cells (0-4) /hpf Urine Bacteria (None) /hpf Urine Mucus (None) /hpf Blood Type O Positive Blood Type Recheck No 08/31/17 Range/Units 15:30 WBC (4.0-11.0) k/uL RBC (3.80-5.40) m/uL Hgb (11.4-16.0) gm/dL Hct (34.0-46.0) % MCV (80.0-100.0) fL MCH (25.0-35.0) pg MCHC (31.0-37.0) g/dL RDW (11.5-15.5) % Plt Count (150-450) k/uL Neutrophils % % Lymphocytes % % Monocytes % % Eosinophils % % Basophils % % Neutrophils # (1.3-7.7) k/uL Lymphocytes # (1.0-4.8) k/uL Monocytes # (0-1.0) k/uL Eosinophils # (0-0.7) k/uL Basophils # (0-0.2) k/uL Sodium (137-145) mmol/L Potassium (3.5-5.1) mmol/L Chloride (98-107) mmol/L Carbon Dioxide (22-30) mmol/L Anion Gap mmol/L BUN (7-17) mg/dL Creatinine (0.52-1.04) mg/dL Est GFR (CKD-EPI)AfAm (>60 ml/min/1.73 sqM) Est GFR (CKD-EPI)NonAf (>60 ml/min/1.73 sqM) Glucose (74-99) mg/dL Calcium (8.4-10.2) mg/dL HCG, Quant mIU/mL Urine Color Yellow Urine Appearance Cloudy H (Clear) Urine pH 6.5 (5.0-8.0) Ur Specific [place] 1.020 (1.001-1.035) Urine Protein Trace H (Negative) Urine Glucose (UA) Negative (Negative) Urine Ketones Negative (Negative) Urine Blood Small H (Negative) Urine Nitrite Positive H (Negative) Urine Bilirubin Negative (Negative) Urine Urobilinogen <2.0 (<2.0) mg/dL Ur Leukocyte Esterase Small H (Negative) Urine RBC 3 (0-5) /hpf Urine WBC 11 H (0-5) /hpf Ur Squamous Epith Cells 1 (0-4) /hpf Urine Bacteria Rare H (None) /hpf Urine Mucus Rare H (None) /hpf Blood Type Blood Type Recheck Disposition Clinical Impression: Ovarian cyst, Urinary tract infection Disposition: HOME SELF-CARE Condition: Stable Instructions: Ovarian Cyst (ED) Additional Instructions: Please return to the Emergency Department if symptoms worsen or any other concerns. Prescriptions: Ciprofloxacin HCl [Cipro] 500 mg PO Q12HR #10 tablet Referrals: None,Stated [Primary Care Provider] - 1-2 days Georgina Faye DO [Doctor of Osteopathic Medicine] - 1-2 days Time of Disposition: 17:05
--- NOTE | 2017-08-31 16:51 | US ---
EXAMINATION TYPE: US transvaginal DATE OF EXAM: 08/31/2017 COMPARISON: NONE CLINICAL HISTORY: Pain. Passing large clots TECHNIQUE: Transvaginal sonographic images were obtained Date of LMP: 08/29/2017 EXAM MEASUREMENTS: Uterus: 6.9 x 4.1 x 4.9 cm Endometrial Stripe: 2.1 cm Right Ovary: 6.8 x 5.7 x 6.8 cm Left Ovary: 4.5 x 3.0 x 2.8 cm 1. Uterus: Anteverted wnl 2. Endometrium: Heterogeneous and thickened endometrium 3. Right Ovary: Ovary contains multiple follicles. Adjacent to the right ovary there is a complex ar ea visualized measuring 5.4 x 4.8 x 6.1 cm 4. Left Ovary: Multiple follicles visualized Spectral, color and waveform doppler imaging shows good arterial and venous flow within the ovaries ; there is no evidence for ovarian torsion. 5. Bilateral Adnexa: wnl 6. Posterior cul-de-sac: wnl IMPRESSION: 1. Complex 5.4 cm paraovarian mass. Correlate with beta-hCG to ensure this does not represent an ecto pic . There is some hyperechogenicity and this could relate to a dermoid or alternatively ad jacent bowel. CT could be performed for further anatomic delineation. 2. Diffusely thickened endometrium measuring up to 2.1 cm is abnormal and could relate to endometrial hyperplasia, endometrial polyp or neoplasm. Further evaluation with sonohysterogram is recommended.
[2017-08-31 17:30] VITALS: BP 106/55; PULSE 66; TEMP 98
== END 2017-08-31 17:33 | disposition home or self-care (01) ==
LOC: EC 13:49
DX: N83.201 Unspecified ovarian cyst, right side (principal); N39.0 Urinary tract infection, site not specified; F17.200 Nicotine dependence, unspecified, uncomplicated; Z88.0 Allergy status to penicillin
CPT/HCPCS: 99284; 36415; 86900; 86901; 80048; 85025; 81001; 84702; 87086; 93975; 76830; J0696

== ENCOUNTER 2019-03-18 19:35 | Emergency (ER) | payer OTHER ==
[2019-03-18 19:48] VITALS: TEMP 98.2
[2019-03-18 20:46] LABS: Basophils # (A) 0.1 k/uL (0-0.2); Basophils % (A) 1 %; Eosinophils # (A) 0.4 k/uL (0-0.7); Eosinophils % (A) 3 %; HCT 39.5 % (34.0-46.0); HGB 13.6 gm/dL (11.4-16.0); Lymphocytes # (A) 3.6 k/uL (1.0-4.8); Lymphocytes % (A) 22 %; MCH 29.7 pg (25.0-35.0); MCHC 34.3 g/dL (31.0-37.0); MCV 86.5 fL (80.0-100.0); Mean Platelet Volume 6.1; Monocytes # (A) 0.4 k/uL (0-1.0); Monocytes % (A) 3 %; Neutrophils # (A) 11.4 k/uL (1.3-7.7); Neutrophils % (A) 71 %; Platelet Count 647 k/uL (150-450); RBC 4.57 m/uL (3.80-5.40); RDW 13.3 % (11.5-15.5); WBC 16.1 k/uL (3.8-10.6)
[2019-03-18 20:57] LABS: ALT 45 U/L (9-52); AST 36 U/L (14-36); African American GFR (CKD) >90 (>60 ml/min/1.73 sqM); Albumin 4.3 g/dL (3.5-5.0); Alkaline Phosphatase 85 U/L (38-126); Anion Gap 10 mmol/L; Blood Urea Nitrogen 14 mg/dL (7-17); Calcium 9.8 mg/dL (8.4-10.2); Carbon Dioxide 26 mmol/L (22-30); Chloride 104 mmol/L (98-107); Glucose 79 mg/dL (74-99); Potassium 4.1 mmol/L (3.5-5.1); Sodium 140 mmol/L (137-145); Total Bilirubin 0.2 mg/dL (0.2-1.3); Total Protein 7.5 g/dL (6.3-8.2)
[2019-03-18 21:14] LABS: HCG,Quantitative Serum <2.4 mIU/mL
--- NOTE | 2019-03-18 22:06 | US ---
EXAMINATION TYPE: Transabdominal DATE OF EXAM: 03/18/2019 9:46 PM COMPARISON: US Pelvis/Transvaginal 2018. CLINICAL HISTORY: pain. Pelvic pain x 4 hours. Vaginal bleeding. LMP unknown. Patient believes she is 12 weeks . . EXAM PERFORMED: Transvaginal (TV) and Transabdominal (TA) EXAM MEASUREMENTS: GESTATIONAL AGE / DATING Physician Established: Not yet established Dates by LMP: Unknown ( Dates by First Scan: This is first scan Dates by Current Scan for: No IUP seen at this time. MATERNAL ANATOMY Uterus: 6.6 x 4.3 x 3.6 cm. Anteverted. Endometrium appears thickened measurin.94 cm. Right Ovary: Area seen in the right adnexa, possible right ovary measures: 6.5 x 4.4 x 7.3 cm. Area o f mixed echogenicity seen in the right adnexa possibly attached to right ovary measurin.9 x 4.4 x 5.2 cm. Color Doppler shows blood flow to these areas. Left Ovary: 4.3 x 3.1 x 3.0 cm. Appears enlarged. Follicles seen. Post CDS / Adnexa: Fluid seen Presence of free fluid: Yes Presence of corpus luteal cyst: no Presence of subchorionic bleed: no GESTATION / SURVEY IUP: No IUP seen at this time Date of LMP: Unknown There is thickened endometrial canal. Intrauterine gestation is not identified. Within the right adne xal region there is a 7 x 4 x 7 cm mixed echogenicity structure. Free fluid is within the cul-de-sac. IMPRESSION: 1. Intrauterine gestation is not identified. There is a complex area within the right adnexal region. Clinical consideration and correlation with beta-hCG for ectopic is recommended.
--- NOTE | 2019-03-18 22:15 | ED ---
Female Urogenital HPI - General Chief complaint: Vaginal Bleeding Stated complaint: Abd Pain Source: patient Mode of arrival: ambulatory Limitations: no limitations - History of Present Illness Initial comments: Glenna is a 23-year-old female who presents the emergency department today for evaluation of pelvic pain and vaginal bleeding. Patient reports that she is always had very irregular periods, her last menstrual cycle was approximately 3- 4 months ago she does not know the exact date she states that she didn't get up. So she took a test she thought there is a faint positive line, this was approximately 3 months ago. She is not taking any subsequent test she has not followed up with a physician she has not established care with a an concrete floater. She's never been seen by gynecology in the past. Patient states that today she experienced approximately 20 minutes of cramping left-sided pelvic pain. She then used the restroom she didn't have any dysuria or hematuria. She did note some blood when she wiped at which time she decided to come to the ER for further evaluation. Patient states that she was able to walk to the emergency department from home with no pain. She is currently comfortable. - Related Data Home Medications Medication Instructions Recorded Confirmed No Known Home Medications 03/18/19 03/18/19 Allergies Allergy/AdvReac Type Severity Reaction Status Date / Time Latex, Natural Rubber Allergy Rash/Hives Verified 03/18/19 21:54 Penicillins Allergy Unknown Verified 03/18/19 21:52 Review of Systems ROS Statement: Those systems with pertinent positive or pertinent negative responses have been documented in the HPI. ROS Other: All systems not noted in ROS Statement are negative. Past Medical History Past Medical History: Seizure Disorder History of Any Multi-Drug Resistant Organisms: None Reported Past Surgical History: Tonsillectomy Past Psychological History: No Psychological Hx Reported Smoking Status: Current every day smoker Past Alcohol Use History: None Reported Past Drug Use History: None Reported General Exam - General Exam Comments Initial Comments: Physical Exam GENERAL: Patient is well-developed and well-nourished. Patient is nontoxic and well-hydrated and is in no distress. Patient is sitting on the bed playing with her phone and talking with her sisters at bedside in absolutely no acute distress HENT: Normocephalic, Atraumatic. EYES: PERRL, EOMI PULMONARY: Unlabored respirations. No audible rales rhonchi or wheezing was noted. CARDIOVASCULAR: There is a regular rate and rhythm without any murmurs gallops or rubs. ABDOMEN: Obese Soft and nontender with normal bowel sounds. SKIN: Skin is clear with no lesions or rashes and otherwise unremarkable. : Deferred Patient declined NEUROLOGIC: Patient is alert and oriented x3. Moving all extremities spontaneously MUSCULOSKELETAL: Normal extremities with adequate strength and full range of motion. No lower extremity swelling or edema. No calf tenderness. PSYCHIATRIC: Normal psychiatric evaluation. Limitations: no limitations Course Vital Signs 03/18/19 03/18/19 19:43 22:38 Temperature 98.2 F 98.2 F Pulse Rate 77 70 Respiratory 18 19 Rate Blood Pressure 104/61 100/60 O2 Sat by Pulse 96 98 Oximetry Medical Decision Making - Medical Decision Making The patient was seen and evaluated history is obtained from the patient Physical 23-year-old morbidly obese female with physical exam consistent with polycystic ovarian syndrome, patient has irregular periods thought she may have had a positive test 3 months prior, had no follow-up. Today had some crampy abdominal pain lasting approximately 20 minutes and subsequently had some pink spotting, no active vaginal bleeding. Labs with mild leukocytosis, no detectable hormone Pelvic ultrasound with complex right ovarian structure possibly complex cyst Lab and ultrasound results were discussed with the patient and discussed with gynecology on-call Dr. Benitez. She states that with a negative beta-hCG is unlikely the patient could have a ectopic . She recommends the patient call the office tomorrow morning for follow-up. This plan was discussed with the patient who is agreeable. Patient has been pain-free since being in the emergency department. The importance of follow-up was stressed to the patient and she was advised to follow-up in Dr. Benitez's office. - Lab Data Result diagrams: 03/18/19 20:37 03/18/19 20:37 Lab Results 03/18/19 03/18/19 03/18/19 Range/Units 20:37 20:37 20:37 WBC 16.1 H (3.8-10.6) k/uL RBC 4.57 (3.80-5.40) m/uL Hgb 13.6 (11.4-16.0) gm/dL Hct 39.5 (34.0-46.0) % MCV 86.5 (80.0-100.0) fL MCH 29.7 (25.0-35.0) pg MCHC 34.3 (31.0-37.0) g/dL RDW 13.3 (11.5-15.5) % Plt Count 647 H (150-450) k/uL Neutrophils % 71 % Lymphocytes % 22 % Monocytes % 3 % Eosinophils % 3 % Basophils % 1 % Neutrophils # 11.4 H (1.3-7.7) k/uL Lymphocytes # 3.6 (1.0-4.8) k/uL Monocytes # 0.4 (0-1.0) k/uL Eosinophils # 0.4 (0-0.7) k/uL Basophils # 0.1 (0-0.2) k/uL Sodium 140 (137-145) mmol/L Potassium 4.1 (3.5-5.1) mmol/L Chloride 104 (98-107) mmol/L Carbon Dioxide 26 (22-30) mmol/L Anion Gap 10 mmol/L BUN 14 (7-17) mg/dL Creatinine 0.69 (0.52-1.04) mg/dL Est GFR (CKD-EPI)AfAm >90 (>60 ml/min/1.73 sqM) Est GFR (CKD-EPI)NonAf >90 (>60 ml/min/1.73 sqM) Glucose 79 (74-99) mg/dL Calcium 9.8 (8.4-10.2) mg/dL Total Bilirubin 0.2 (0.2-1.3) mg/dL AST 36 (14-36) U/L ALT 45 (9-52) U/L Alkaline Phosphatase 85 (38-126) U/L Total Protein 7.5 (6.3-8.2) g/dL Albumin 4.3 (3.5-5.0) g/dL HCG, Quant <2.4 mIU/mL Urine Color Urine Appearance (Clear) Urine pH (5.0-8.0) Ur Specific [place] (1.001-1.035) Urine Protein (Negative) Urine Glucose (UA) (Negative) Urine Ketones (Negative) Urine Blood (Negative) Urine Nitrite (Negative) Urine Bilirubin (Negative) Urine Urobilinogen (<2.0) mg/dL Ur Leukocyte Esterase (Negative) Urine RBC (0-5) /hpf Urine WBC (0-5) /hpf Ur Squamous Epith Cells (0-4) /hpf Urine Bacteria (None) /hpf Urine Mucus (None) /hpf Blood Type O Positive Blood Type Recheck O Pos Bld Type Recheck Status No 03/18/19 Range/Units 22:26 WBC (3.8-10.6) k/uL RBC (3.80-5.40) m/uL Hgb (11.4-16.0) gm/dL Hct (34.0-46.0) % MCV (80.0-100.0) fL MCH (25.0-35.0) pg MCHC (31.0-37.0) g/dL RDW (11.5-15.5) % Plt Count (150-450) k/uL Neutrophils % % Lymphocytes % % Monocytes % % Eosinophils % % Basophils % % Neutrophils # (1.3-7.7) k/uL Lymphocytes # (1.0-4.8) k/uL Monocytes # (0-1.0) k/uL Eosinophils # (0-0.7) k/uL Basophils # (0-0.2) k/uL Sodium (137-145) mmol/L Potassium (3.5-5.1) mmol/L Chloride (98-107) mmol/L Carbon Dioxide (22-30) mmol/L Anion Gap mmol/L BUN (7-17) mg/dL Creatinine (0.52-1.04) mg/dL Est GFR (CKD-EPI)AfAm (>60 ml/min/1.73 sqM) Est GFR (CKD-EPI)NonAf (>60 ml/min/1.73 sqM) Glucose (74-99) mg/dL Calcium (8.4-10.2) mg/dL Total Bilirubin (0.2-1.3) mg/dL AST (14-36) U/L ALT (9-52) U/L Alkaline Phosphatase (38-126) U/L Total Protein (6.3-8.2) g/dL Albumin (3.5-5.0) g/dL HCG, Quant mIU/mL Urine Color Yellow Urine Appearance Cloudy H (Clear) Urine pH 6.0 (5.0-8.0) Ur Specific [place] 1.018 (1.001-1.035) Urine Protein Trace H (Negative) Urine Glucose (UA) Negative (Negative) Urine Ketones Negative (Negative) Urine Blood Large H (Negative) Urine Nitrite Negative (Negative) Urine Bilirubin Negative (Negative) Urine Urobilinogen <2.0 (<2.0) mg/dL Ur Leukocyte Esterase Large H (Negative) Urine RBC 5 (0-5) /hpf Urine WBC 25 H (0-5) /hpf Ur Squamous Epith Cells 6 H (0-4) /hpf Urine Bacteria Many H (None) /hpf Urine Mucus Rare H (None) /hpf Blood Type Blood Type Recheck Bld Type Recheck Status Disposition Clinical Impression: Vaginal bleeding Disposition: HOME SELF-CARE Condition: Stable Additional Instructions: Need to follow up with gynecology, call Dr. Benitez's office tomorrow Is patient prescribed a controlled substance at d/c from ED?: No Referrals: Felicitas Dickinson MD [Primary Care Provider] - 1-2 days Keyona Benitez MD [STAFF PHYSICIAN] - 1-2 days
[2019-03-18 22:45] LABS: Appearance,Urine Cloudy (Clear); Bacteria,Urine Many /hpf; Bilirubin,Urine Negative (Negative); Blood,Urine Large (Negative); Color,Urine Yellow; Glucose,Urine (UA) Negative (Negative); Ketones,Urine Negative (Negative); Leukocyte Esterase,Urine Large (Negative); Mucus,Urine Rare /hpf; Nitrite,Urine Negative (Negative); Protein,Urine Trace (Negative); RBC,Urine 5 /hpf (0-5); Specific Gravity,Urine 1.018 (1.001-1.035); Squamous Epithelial Cell,Urine 6 /hpf (0-4); Urobilinogen,Urine <2.0 mg/dL (<2.0)
[2019-03-18 22:47] VITALS: BP 100/60; PULSE 70; RESP 19
== END 2019-03-18 22:42 | disposition home or self-care (01) ==
LOC: EC 19:35
DX: N93.9 Abnormal uterine and vaginal bleeding, unspecified (principal); D72.829 Elevated white blood cell count, unspecified; N92.6 Irregular menstruation, unspecified; R10.2 Pelvic and perineal pain; E66.01 Morbid (severe) obesity due to excess calories; F17.200 Nicotine dependence, unspecified, uncomplicated; Z91.040 Latex allergy status; Z88.0 Allergy status to penicillin; Z68.36 Body mass index [BMI] 36.0-36.9, adult
CPT/HCPCS: 36415; 76801; 76817; 80053; 81001; 84702; 85025; 86900; 86901; 87077; 87086; 87186; 99284

== ENCOUNTER 2019-08-03 20:13 | Emergency (ER) | payer OTHER ==
[2019-08-03 20:25] VITALS: RESP 18; TEMP 98.8
[2019-08-03] MEDS ORDERED: SODIUM CHLORIDE 0.9% 1,000 ML IV STA (21:09)
[2019-08-03 21:36] LABS: Basophils # (A) 0.1 k/uL (0-0.2); Basophils % (A) 0 %; Eosinophils # (A) 0.5 k/uL (0-0.7); Eosinophils % (A) 4 %; Lymphocytes # (A) 3.3 k/uL (1.0-4.8); Lymphocytes % (A) 22 %; MCH 28.8 pg (25.0-35.0); MCHC 33.4 g/dL (31.0-37.0); MCV 86.3 fL (80.0-100.0); Mean Platelet Volume 7.6; Monocytes # (A) 0.5 k/uL (0-1.0); Monocytes % (A) 3 %; Neutrophils # (A) 10.6 k/uL (1.3-7.7); Neutrophils % (A) 70 %; Platelet Count 630 k/uL (150-450); RBC 4.86 m/uL (3.80-5.40); RDW 13.3 % (11.5-15.5); WBC 15.3 k/uL (3.8-10.6)
[2019-08-03 21:43] LABS: ALT 45 U/L (4-34); AST 39 U/L (14-36); African American GFR (CKD) >90 (>60 ml/min/1.73 sqM); Albumin 4.6 g/dL (3.5-5.0); Alkaline Phosphatase 94 U/L (38-126); Anion Gap 11 mmol/L; Blood Urea Nitrogen 14 mg/dL (7-17); Calcium 9.9 mg/dL (8.4-10.2); Carbon Dioxide 26 mmol/L (22-30); Chloride 102 mmol/L (98-107); Glucose 95 mg/dL (74-99); Non-African American GFR(CKD) >90 (>60 ml/min/1.73 sqM); Potassium 4.3 mmol/L (3.5-5.1); Sodium 139 mmol/L (137-145); Total Bilirubin 0.2 mg/dL (0.2-1.3); Total Protein 7.7 g/dL (6.3-8.2)
[2019-08-03 21:43] LABS: Appearance,Urine Cloudy (Clear); Bacteria,Urine Rare /hpf; Bilirubin,Urine Negative (Negative); Blood,Urine Negative (Negative); Color,Urine Yellow; Glucose,Urine (UA) Negative (Negative); Ketones,Urine Negative (Negative); Leukocyte Esterase,Urine Large (Negative); Mucus,Urine Occasional /hpf; Nitrite,Urine Negative (Negative); Protein,Urine Trace (Negative); RBC,Urine 22 /hpf (0-5); Specific Gravity,Urine 1.025 (1.001-1.035); Squamous Epithelial Cell,Urine 9 /hpf (0-4); Urobilinogen,Urine <2.0 mg/dL (<2.0); WBC,Urine 21 /hpf (0-5)
[2019-08-03 22:04] LABS: Amphetamine Screen,Urine Not Detected (NotDetected); Barbiturate Screen,Urine Detected (NotDetected); Benzodiazepines Screen,Urine Not Detected (NotDetected); Cocaine Screen,Urine Not Detected (NotDetected); Methadone Screen, Urine Not Detected (NotDetected); Opiate Screen,Urine Not Detected (NotDetected); Oxycodone Screen, Urine Not Detected (NotDetected); Phencyclidine Screen,Urine Not Detected (NotDetected); Tricyclic Antidepressant,Urine Not Detected (NotDetected); Urn Cannabinoid Scrn Not Detected (NotDetected)
[2019-08-03 22:52] VITALS: BP 111/69; PULSE 82
--- NOTE | 2019-08-03 22:53 | ED ---
Seizure HPI - General Chief Complaint: Seizure Stated Complaint: Seizure Time Seen by Provider: 08/03/19 20:32 Source: patient, EMS Mode of arrival: EMS Limitations: no limitations - History of Present Illness Initial Comments: 23-year-old female patient presents to the emergency department today for evaluation after having a seizure. Patient states that she does have a history of epilepsy. States that she started having more frequent seizures during her senior year of high school. States that she has had 3-4 seizures per month since then. States that she is not currently taking medication. She has not followed up with a neurologist for this. Patient states today she was at home, having a headache which is quite usual for her. States that she started to feel weird and then next thing she knew she woke up on the floor. Patient believes s he had a seizure during this time however she was home alone. They should call 911 to bring her here to the hospital. Patient states she is currently having mild headache which is common before and after her seizures. States she is feeling a little nauseated but denies any vomiting. She denies any recent illness or denies chance of . Denies any recent head injury. Patient denies any recent rash, fever, chills, shortness breath, chest pain, abdominal pain, diarrhea, constipation, back pain, numbness, tingling, dizziness, weakness, hematuria, dysuria, urinary urgency, urinary frequency, headache, visual changes, or any other complaints. Patient is currently on her period. - Related Data Home Medications Medication Instructions Recorded Confirmed No Known Home Medications 03/18/19 03/18/19 Allergies Allergy/AdvReac Type Severity Reaction Status Date / Time Latex, Natural Rubber Allergy Rash/Hives Verified 03/18/19 21:54 Penicillins Allergy Unknown Verified 03/18/19 21:52 Review of Systems ROS Statement: Those systems with pertinent positive or pertinent negative responses have been documented in the HPI. ROS Other: All systems not noted in ROS Statement are negative. Past Medical History Past Medical History: Seizure Disorder History of Any Multi-Drug Resistant Organisms: None Reported Past Surgical History: Tonsillectomy Past Psychological History: Anxiety, Bipolar, Depression Smoking Status: Current every day smoker Past Alcohol Use History: Occasional Past Drug Use History: None Reported General Exam Limitations: no limitations General appearance: alert, in no apparent distress, other (This is a well- developed, well-nourished adult female patient in no acute distress. Vital signs upon presentation are temperature 98.8F, pulse 92, respirations 18, blood pressure 134/80, pulse ox 98% on room air.) Eye exam: Present: normal appearance, PERRL, EOMI. Absent: scleral icterus, conjunctival injection, periorbital swelling ENT exam: Present: normal exam, normal oropharynx, mucous membranes moist Respiratory exam: Present: normal lung sounds bilaterally. Absent: respiratory distress, wheezes, rales, rhonchi, stridor Cardiovascular Exam: Present: regular rate, normal rhythm, normal heart sounds. Absent: systolic murmur, diastolic murmur, rubs, gallop, clicks GI/Abdominal exam: Present: soft, normal bowel sounds. Absent: distended, tenderness, guarding, rebound, rigid Neurological exam: Present: alert, oriented X3, CN II-XII intact, other (Strength in all 4 extremities is 5/5.) Psychiatric exam: Present: normal affect, normal mood Skin exam: Present: warm, dry, intact, normal color. Absent: rash Course Vital Signs 08/03/19 08/03/19 08/03/19 20:17 21:00 22:45 Temperature 98.8 F Pulse Rate 92 88 82 Respiratory 18 18 18 Rate Blood Pressure 134/80 139/79 111/69 O2 Sat by Pulse 98 98 100 Oximetry Medical Decision Making - Medical Decision Making 23-year-old female patient presented to the emergency department today for evaluation after having a seizure. Physical examination is unremarkable. She is neurologically intact no deficits. Patient is have a history of seizures, not currently taking medication. Labs reviewed and are unremarkable. She is not . She'll be discharged to follow-up with the primary care physician and neurologist for further evaluation. She is instructed not to drive, operate heavy machinery, or perform any dangerous activities until she is cleared by the neurologist. Return parameters were discussed in detail. She verbalizes understanding and agrees with this plan. - Lab Data Result diagrams: 08/03/19 21:26 08/03/19 21:26 Lab Results 08/03/19 08/03/19 08/03/19 Range/Units 21:12 21:12 21:26 WBC 15.3 H (3.8-10.6) k/uL RBC 4.86 (3.80-5.40) m/uL Hgb 14.0 (11.4-16.0) gm/dL Hct 42.0 (34.0-46.0) % MCV 86.3 (80.0-100.0) fL MCH 28.8 (25.0-35.0) pg MCHC 33.4 (31.0-37.0) g/dL RDW 13.3 (11.5-15.5) % Plt Count 630 H (150-450) k/uL Neutrophils % 70 % Lymphocytes % 22 % Monocytes % 3 % Eosinophils % 4 % Basophils % 0 % Neutrophils # 10.6 H (1.3-7.7) k/uL Lymphocytes # 3.3 (1.0-4.8) k/uL Monocytes # 0.5 (0-1.0) k/uL Eosinophils # 0.5 (0-0.7) k/uL Basophils # 0.1 (0-0.2) k/uL Sodium (137-145) mmol/L Potassium (3.5-5.1) mmol/L Chloride (98-107) mmol/L Carbon Dioxide (22-30) mmol/L Anion Gap mmol/L BUN (7-17) mg/dL Creatinine (0.52-1.04) mg/dL Est GFR (CKD-EPI)AfAm (>60 ml/min/1.73 sqM) Est GFR (CKD-EPI)NonAf (>60 ml/min/1.73 sqM) Glucose (74-99) mg/dL Calcium (8.4-10.2) mg/dL Total Bilirubin (0.2-1.3) mg/dL AST (14-36) U/L ALT (4-34) U/L Alkaline Phosphatase (38-126) U/L Total Protein (6.3-8.2) g/dL Albumin (3.5-5.0) g/dL Urine Color Yellow Urine Appearance Cloudy H (Clear) Urine pH 6.0 (5.0-8.0) Ur Specific [place] 1.025 (1.001-1.035) Urine Protein Trace H (Negative) Urine Glucose (UA) Negative (Negative) Urine Ketones Negative (Negative) Urine Blood Negative (Negative) Urine Nitrite Negative (Negative) Urine Bilirubin Negative (Negative) Urine Urobilinogen <2.0 (<2.0) mg/dL Ur Leukocyte Esterase Large H (Negative) Urine RBC 22 H (0-5) /hpf Urine WBC 21 H (0-5) /hpf Ur Squamous Epith Cells 9 H (0-4) /hpf Urine Bacteria Rare H (None) /hpf Urine Mucus Occasional H (None) /hpf Urine HCG, Qual Not Detected (Not Detectd) Urine Opiates Screen Not Detected (NotDetected) Ur Oxycodone Screen Not Detected (NotDetected) Urine Methadone Screen Not Detected (NotDetected) Ur Propoxyphene Screen Not Detected (NotDetected) Ur Barbiturates Screen Detected H (NotDetected) U Tricyclic Antidepress Not Detected (NotDetected) Ur Phencyclidine Scrn Not Detected (NotDetected) Ur Amphetamines Screen Not Detected (NotDetected) U Methamphetamines Scrn Not Detected (NotDetected) U Benzodiazepines Scrn Not Detected (NotDetected) Urine Cocaine Screen Not Detected (NotDetected) U Marijuana (THC) Screen Not Detected (NotDetected) 08/03/19 Range/Units 21:26 WBC (3.8-10.6) k/uL RBC (3.80-5.40) m/uL Hgb (11.4-16.0) gm/dL Hct (34.0-46.0) % MCV (80.0-100.0) fL MCH (25.0-35.0) pg MCHC (31.0-37.0) g/dL RDW (11.5-15.5) % Plt Count (150-450) k/uL Neutrophils % % Lymphocytes % % Monocytes % % Eosinophils % % Basophils % % Neutrophils # (1.3-7.7) k/uL Lymphocytes # (1.0-4.8) k/uL Monocytes # (0-1.0) k/uL Eosinophils # (0-0.7) k/uL Basophils # (0-0.2) k/uL Sodium 139 (137-145) mmol/L Potassium 4.3 (3.5-5.1) mmol/L Chloride 102 (98-107) mmol/L Carbon Dioxide 26 (22-30) mmol/L Anion Gap 11 mmol/L BUN 14 (7-17) mg/dL Creatinine 0.53 (0.52-1.04) mg/dL Est GFR (CKD-EPI)AfAm >90 (>60 ml/min/1.73 sqM) Est GFR (CKD-EPI)NonAf >90 (>60 ml/min/1.73 sqM) Glucose 95 (74-99) mg/dL Calcium 9.9 (8.4-10.2) mg/dL Total Bilirubin 0.2 (0.2-1.3) mg/dL AST 39 H (14-36) U/L ALT 45 H (4-34) U/L Alkaline Phosphatase 94 (38-126) U/L Total Protein 7.7 (6.3-8.2) g/dL Albumin 4.6 (3.5-5.0) g/dL Urine Color Urine Appearance (Clear) Urine pH (5.0-8.0) Ur Specific [place] (1.001-1.035) Urine Protein (Negative) Urine Glucose (UA) (Negative) Urine Ketones (Negative) Urine Blood (Negative) Urine Nitrite (Negative) Urine Bilirubin (Negative) Urine Urobilinogen (<2.0) mg/dL Ur Leukocyte Esterase (Negative) Urine RBC (0-5) /hpf Urine WBC (0-5) /hpf Ur Squamous Epith Cells (0-4) /hpf Urine Bacteria (None) /hpf Urine Mucus (None) /hpf Urine HCG, Qual (Not Detectd) Urine Opiates Screen (NotDetected) Ur Oxycodone Screen (NotDetected) Urine Methadone Screen (NotDetected) Ur Propoxyphene Screen (NotDetected) Ur Barbiturates Screen (NotDetected) U Tricyclic Antidepress (NotDetected) Ur Phencyclidine Scrn (NotDetected) Ur Amphetamines Screen (NotDetected) U Methamphetamines Scrn (NotDetected) U Benzodiazepines Scrn (NotDetected) Urine Cocaine Screen (NotDetected) U Marijuana (THC) Screen (NotDetected) - Radiology Data Radiology results: image reviewed Disposition Clinical Impression: Recurrent seizures Disposition: HOME SELF-CARE Condition: Good Instructions (If sedation given, give patient instructions): Recurrent Seizures in Adults (ED) Additional Instructions: Increase fluids. Rest and follow up with neurology for further evaluation as soon as possible. Do not drive a car or operate heavy machinery until you are evaluating cleared by neurologist. Avoid dangerous activities until your seizures are under control. Follow-up with your primary care physician for recheck in 1-2 days. Return to the emergency department immediately for any new, worsening, or concerning symptoms. Is patient prescribed a controlled substance at d/c from ED?: No Referrals: Felicitas Dickinson MD [Primary Care Provider] - 1-2 days Time of Disposition: 22:53
== END 2019-08-03 23:18 | disposition home or self-care (01) ==
LOC: EC 20:13
DX: G40.909 Epilepsy, unspecified, not intractable, without status epilepticus (principal); F17.200 Nicotine dependence, unspecified, uncomplicated; Z88.0 Allergy status to penicillin; Z91.040 Latex allergy status
CPT/HCPCS: 36415; 80053; 80306; 81001; 81025; 85025; 93005; 96360; 99284

== ENCOUNTER 2020-07-29 16:49 | Emergency (ER) | payer OTHER ==
[2020-07-29 17:00] VITALS: RESP 18; TEMP 98
[2020-07-29] MEDS ORDERED: MORPHINE SULFATE 4 MG/ML SYRINGE IVP STA (17:20)
[2020-07-29] MEDS ORDERED: RX INFO: IV CONTRAST WAS GIVEN 1 EACH MISC MISCELLANE PRN (17:21)
[2020-07-29 17:44] LABS: Appearance,Urine Cloudy (Clear); Bilirubin,Urine Negative (Negative); Blood,Urine Negative (Negative); Color,Urine Light Yellow; Glucose,Urine (UA) 4+ (Negative); Leukocyte Esterase,Urine Moderate (Negative); Mucus,Urine Rare /hpf; Nitrite,Urine Negative (Negative); Protein,Urine 1+ (Negative); RBC,Urine 7 /hpf (0-5); Specific Gravity,Urine 1.038 (1.001-1.035); Squamous Epithelial Cell,Urine 9 /hpf (0-4); Urobilinogen,Urine <2.0 mg/dL (<2.0); WBC,Urine 22 /hpf (0-5)
[2020-07-29 17:46] LABS: Basophils # (A) 0.1 k/uL (0-0.2); Basophils % (A) 1 %; Eosinophils # (A) 0.5 k/uL (0-0.7); Eosinophils % (A) 4 %; HCT 44.5 % (34.0-46.0); Lymphocytes # (A) 3.1 k/uL (1.0-4.8); Lymphocytes % (A) 25 %; MCH 27.9 pg (25.0-35.0); MCHC 33.6 g/dL (31.0-37.0); MCV 83.1 fL (80.0-100.0); Mean Platelet Volume 7.9; Monocytes # (A) 0.3 k/uL (0-1.0); Monocytes % (A) 3 %; Neutrophils # (A) 8.4 k/uL (1.3-7.7); Neutrophils % (A) 67 %; Platelet Count 565 k/uL (150-450); RBC 5.36 m/uL (3.80-5.40); RDW 12.6 % (11.5-15.5); WBC 12.4 k/uL (3.8-10.6)
[2020-07-29 17:48] LABS: Ketones,Urine 2+ (Negative)
[2020-07-29 17:49] LABS: Partial Thromboplastin Time 23.3 sec (22.0-30.0); Prothrombin Time 10.6 sec (9.0-12.0)
[2020-07-29 17:50] LABS: ALT 84 U/L (4-34); AST 121 U/L (14-36); African American GFR (CKD) >90 (>60 ml/min/1.73 sqM); Albumin 4.7 g/dL (3.5-5.0); Alkaline Phosphatase 124 U/L (38-126); Anion Gap 11 mmol/L; Blood Urea Nitrogen 11 mg/dL (7-17); Calcium 9.9 mg/dL (8.4-10.2); Carbon Dioxide 23 mmol/L (22-30); Chloride 97 mmol/L (98-107); Glucose 368 mg/dL (74-99); Non-African American GFR(CKD) >90 (>60 ml/min/1.73 sqM); Potassium 4.4 mmol/L (3.5-5.1); Sodium 131 mmol/L (137-145); Total Bilirubin 0.5 mg/dL (0.2-1.3); Total Protein 8.1 g/dL (6.3-8.2)
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
--- NOTE | 2020-07-29 18:23 | XR ---
EXAMINATION TYPE: XR shoulder complete LT DATE OF EXAM: 07/29/2020 COMPARISON: NONE HISTORY: Shoulder pain TECHNIQUE: 3 views FINDINGS: There is no sign of fracture nor dislocation. Joint spaces are normal. There are no patholo gic calcifications. Soft tissues appear normal. IMPRESSION: Normal left shoulder.
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
[2020-07-29 19:18] VITALS: BP 101/65; PULSE 83
[2020-07-30 04:37] LABS: Hemoglobin A1C 11.3 % (4.0-6.0)
== END 2020-07-29 19:18 | disposition home or self-care (01) ==
LOC: EC 16:49
DX: R07.89 Other chest pain (principal); R73.9 Hyperglycemia, unspecified; F17.200 Nicotine dependence, unspecified, uncomplicated; J45.909 Unspecified asthma, uncomplicated; V89.2XXA Person injured in unspecified motor-vehicle accident, traffic, initial encounter; Y92.410 Unspecified street and highway as the place of occurrence of the external cause; Z90.09 Acquired absence of other part of head and neck
CPT/HCPCS: 36415; 93005; 80053; 84484; 85025; 85610; 85730; 81001; 81025; 83036; 73030; 71260; 99285; 96374; J2270; Q9967

== ENCOUNTER 2020-11-21 19:15 | Emergency (ER) | payer OTHER ==
[2020-11-21] MEDS ORDERED: SODIUM CHLORIDE 0.9% 1,000 ML IV STA (19:25)
[2020-11-21 19:41] LABS: Glucose,Whole Blood 410 mg/dL (75-99)
--- NOTE | 2020-11-21 19:44 | ED ---
Seizure HPI - General Chief Complaint: Seizure Stated Complaint: Seizure Source: patient, EMS Mode of arrival: EMS Limitations: no limitations - History of Present Illness Initial Comments: 24-year-old female with history of epilepsy presents to emergency Department with a chief complaint of a seizure. Patient reports she typically experiences one weekly tonic-clonic seizure due to her epilepsy. However, over the last 2 days she's had 2 seizures. States that today's seizure was witnessed by her friend while they were work. According to the friend, patient had a seizure lasting approximately 3 minutes with a postictal state. Patient was brought to the ED via EMS. Patient reports 2 weeks ago she discontinued taking her Lamictal on the recommendation of her primary care physician. She reports feeling anxious right now. She denies urinary incontinence or any biting of the tongue. She reports a headache at this time but denies any visual changes one- sided weakness or paresthesias. Denies any chest pain or shortness of breath. She believes these recent seizure episodes are secondary to elevated blood sugars which is secondary to type 2 diabetes which she currently takes Januvia and metformin. The patient's boyfriend inform me that she has a poor diet and eats plenteous weeks. She drinks a [employer] energy drink on daily basis. - Related Data Home Medications Medication Instructions Recorded Confirmed No Known Home Medications 03/18/19 03/18/19 Allergies Allergy/AdvReac Type Severity Reaction Status Date / Time Latex, Natural Rubber Allergy Rash/Hives Verified 07/29/20 16:59 Penicillins Allergy Unknown Verified 07/29/20 16:59 Review of Systems ROS Statement: Those systems with pertinent positive or pertinent negative responses have been documented in the HPI. ROS Other: All systems not noted in ROS Statement are negative. Past Medical History Past Medical History: Asthma, Diabetes Mellitus, Seizure Disorder History of Any Multi-Drug Resistant Organisms: None Reported Past Surgical History: Tonsillectomy Past Psychological History: Anxiety, Bipolar, Depression Smoking Status: Vaper Past Alcohol Use History: None Reported Past Drug Use History: None Reported General Exam Limitations: no limitations General appearance: alert, in no apparent distress, obese Head exam: Present: atraumatic, normocephalic, normal inspection Eye exam: Present: normal appearance, PERRL, EOMI Pupils: Present: normal accommodation ENT exam: Present: normal exam, normal oropharynx (No signs of biting of tongue), mucous membranes moist, TM's normal bilaterally, normal external ear exam Neck exam: Present: normal inspection, full ROM. Absent: tenderness, lymphadenopathy, thyromegaly Respiratory exam: Present: normal lung sounds bilaterally. Absent: respiratory distress, wheezes, rales, rhonchi, stridor Cardiovascular Exam: Present: regular rate, normal rhythm, normal heart sounds. Absent: systolic murmur, diastolic murmur GI/Abdominal exam: Present: soft. Absent: distended, tenderness, guarding, rebound, rigid Extremities exam: Present: normal inspection, full ROM, normal capillary refill. Absent: tenderness, pedal edema, joint swelling Back exam: Present: normal inspection, full ROM. Absent: tenderness, CVA tenderness (R), CVA tenderness (L), muscle spasm, paraspinal tenderness, vertebral tenderness Neurological exam: Present: alert, oriented X3, CN II-XII intact, normal gait Psychiatric exam: Present: normal affect, normal mood Skin exam: Present: warm, dry, intact, normal color Course Vital Signs 11/21/20 11/21/20 19:17 21:30 Temperature 98.2 F 98.5 F Pulse Rate 88 101 H Respiratory 16 18 Rate Blood Pressure 148/69 137/76 O2 Sat by Pulse 99 100 Oximetry Medical Decision Making - Medical Decision Making 24-year-old female with history of epilepsy presents to emergency Department wi a chief complaint of a seizure. On physical examination, patient is well- appearing and alert and oriented 3. No signs of urinary incontinence or oral trauma. No focal neural deficits. CBC unremarkable. CMP reveals transaminitis, however this appears to be chronic. Lactic acid 2.1. This will likely resolve after 2 L of IV bolus fluids. Patient was hyperglycemic with initial blood glucose of 410. She was given initially 4 units of Humalog which brought her glucose level to 320. She was then given additional 6 units of regular insulin and advised to monitor her sugar. Patient does not follow proper diet and drinks fluids that are heavy on simple sugars.UA shows no ketones. Acetone negative. No concern for DKA at this time. This appears to be typical seizure secondary to her epilepsy. Advised to follow-up with a neurologist and give her contact information. Strict return parameters were thoroughly discussed with patient is an attending agreeable. Case discussed with - Lab Data Result diagrams: 11/21/20 19:36 11/21/20 19:36 Lab Results 11/21/20 11/21/20 11/21/20 Range/Units 19:24 19:36 19:36 WBC 12.9 H (3.8-10.6) k/uL RBC 5.42 H (3.80-5.40) m/uL Hgb 14.6 (11.4-16.0) gm/dL Hct 44.5 (34.0-46.0) % MCV 82.0 (80.0-100.0) fL MCH 26.9 (25.0-35.0) pg MCHC 32.8 (31.0-37.0) g/dL RDW 14.6 (11.5-15.5) % Plt Count DESKTOP PUBLISHING SPECIALIST MPV 10.7 Neutrophils % 60 % Lymphocytes % 31 % Monocytes % 4 % Eosinophils % 2 % Basophils % 1 % Neutrophils # 7.8 H (1.3-7.7) k/uL Lymphocytes # 4.0 (1.0-4.8) k/uL Monocytes # 0.5 (0-1.0) k/uL Eosinophils # 0.3 (0-0.7) k/uL Basophils # 0.1 (0-0.2) k/uL Sodium (137-145) mmol/L Potassium (3.5-5.1) mmol/L Chloride (98-107) mmol/L Carbon Dioxide (22-30) mmol/L Anion Gap mmol/L BUN (7-17) mg/dL Creatinine (0.52-1.04) mg/dL Est GFR (CKD-EPI)AfAm (>60 ml/min/1.73 sqM) Est GFR (CKD-EPI)NonAf (>60 ml/min/1.73 sqM) Glucose (74-99) mg/dL POC Glucose (mg/dL) (75-99) mg/dL POC Glu Coverer ID Lactic Ac Sepsis Rflx Plasma Lactic Acid Jose Luis (0.7-2.0) mmol/L Calcium (8.4-10.2) mg/dL Phosphorus (2.5-4.5) mg/dL Magnesium (1.6-2.3) mg/dL Total Bilirubin (0.2-1.3) mg/dL AST (14-36) U/L ALT (4-34) U/L Alkaline Phosphatase (38-126) U/L Total Protein (6.3-8.2) g/dL Albumin (3.5-5.0) g/dL Urine Color Light Yellow Urine Appearance Clear (Clear) Urine pH 5.5 (5.0-8.0) Ur Specific [place] 1.038 H (1.001-1.035) Urine Protein Negative (Negative) Urine Glucose (UA) 4+ H (Negative) Urine Ketones Negative (Negative) Urine Blood Trace H (Negative) Urine Nitrite Negative (Negative) Urine Bilirubin Negative (Negative) Urine Urobilinogen <2.0 (<2.0) mg/dL Ur Leukocyte Esterase Negative (Negative) Urine RBC <1 (0-5) /hpf Urine WBC 2 (0-5) /hpf Ur Squamous Epith Cells 1 (0-4) /hpf Urine Mucus Rare H (None) /hpf Acetone, Qual Negative (Negative) 11/21/20 11/21/20 11/21/20 Range/Units 19:36 19:36 19:40 WBC (3.8-10.6) k/uL RBC (3.80-5.40) m/uL Hgb (11.4-16.0) gm/dL Hct (34.0-46.0) % MCV (80.0-100.0) fL MCH (25.0-35.0) pg MCHC (31.0-37.0) g/dL RDW (11.5-15.5) % Plt Count MPV Neutrophils % % Lymphocytes % % Monocytes % % Eosinophils % % Basophils % % Neutrophils # (1.3-7.7) k/uL Lymphocytes # (1.0-4.8) k/uL Monocytes # (0-1.0) k/uL Eosinophils # (0-0.7) k/uL Basophils # (0-0.2) k/uL Sodium 135 L (137-145) mmol/L Potassium 4.5 (3.5-5.1) mmol/L Chloride 98 (98-107) mmol/L Carbon Dioxide 23 (22-30) mmol/L Anion Gap 14 mmol/L BUN 10 (7-17) mg/dL Creatinine 0.38 L (0.52-1.04) mg/dL Est GFR (CKD-EPI)AfAm >90 (>60 ml/min/1.73 sqM) Est GFR (CKD-EPI)NonAf >90 (>60 ml/min/1.73 sqM) Glucose 436 H (74-99) mg/dL POC Glucose (mg/dL) 410 H (75-99) mg/dL POC Glu Coverer Noreen Riggs Lactic Ac Sepsis Rflx Plasma Lactic Acid Jose Luis 2.1 H* (0.7-2.0) mmol/L Calcium 10.1 (8.4-10.2) mg/dL Phosphorus 4.6 H (2.5-4.5) mg/dL Magnesium 1.6 (1.6-2.3) mg/dL Total Bilirubin 0.3 (0.2-1.3) mg/dL AST 101 H (14-36) U/L ALT 109 H (4-34) U/L Alkaline Phosphatase 149 H (38-126) U/L Total Protein 7.7 (6.3-8.2) g/dL Albumin 4.7 (3.5-5.0) g/dL Urine Color Urine Appearance (Clear) Urine pH (5.0-8.0) Ur Specific [place] (1.001-1.035) Urine Protein (Negative) Urine Glucose (UA) (Negative) Urine Ketones (Negative) Urine Blood (Negative) Urine Nitrite (Negative) Urine Bilirubin (Negative) Urine Urobilinogen (<2.0) mg/dL Ur Leukocyte Esterase (Negative) Urine RBC (0-5) /hpf Urine WBC (0-5) /hpf Ur Squamous Epith Cells (0-4) /hpf Urine Mucus (None) /hpf Acetone, Qual (Negative) 11/21/20 11/21/20 11/21/20 Range/Units 20:49 21:21 21:29 WBC (3.8-10.6) k/uL RBC (3.80-5.40) m/uL Hgb (11.4-16.0) gm/dL Hct (34.0-46.0) % MCV (80.0-100.0) fL MCH (25.0-35.0) pg MCHC (31.0-37.0) g/dL RDW (11.5-15.5) % Plt Count MPV Neutrophils % % Lymphocytes % % Monocytes % % Eosinophils % % Basophils % % Neutrophils # (1.3-7.7) k/uL Lymphocytes # (1.0-4.8) k/uL Monocytes # (0-1.0) k/uL Eosinophils # (0-0.7) k/uL Basophils # (0-0.2) k/uL Sodium (137-145) mmol/L Potassium (3.5-5.1) mmol/L Chloride (98-107) mmol/L Carbon Dioxide (22-30) mmol/L Anion Gap mmol/L BUN (7-17) mg/dL Creatinine (0.52-1.04) mg/dL Est GFR (CKD-EPI)AfAm (>60 ml/min/1.73 sqM) Est GFR (CKD-EPI)NonAf (>60 ml/min/1.73 sqM) Glucose (74-99) mg/dL POC Glucose (mg/dL) 372 H 378 H (75-99) mg/dL POC Glu Coverer JER Heft, Noreen Heft, Noreen Lactic Ac Sepsis Rflx Y Plasma Lactic Acid Jose Luis (0.7-2.0) mmol/L Calcium (8.4-10.2) mg/dL Phosphorus (2.5-4.5) mg/dL Magnesium (1.6-2.3) mg/dL Total Bilirubin (0.2-1.3) mg/dL AST (14-36) U/L ALT (4-34) U/L Alkaline Phosphatase (38-126) U/L Total Protein (6.3-8.2) g/dL Albumin (3.5-5.0) g/dL Urine Color Urine Appearance (Clear) Urine pH (5.0-8.0) Ur Specific [place] (1.001-1.035) Urine Protein (Negative) Urine Glucose (UA) (Negative) Urine Ketones (Negative) Urine Blood (Negative) Urine Nitrite (Negative) Urine Bilirubin (Negative) Urine Urobilinogen (<2.0) mg/dL Ur Leukocyte Esterase (Negative) Urine RBC (0-5) /hpf Urine WBC (0-5) /hpf Ur Squamous Epith Cells (0-4) /hpf Urine Mucus (None) /hpf Acetone, Qual (Negative) 06/26/21 Range/Units 21:57 WBC (3.8-10.6) k/uL RBC (3.80-5.40) m/uL Hgb (11.4-16.0) gm/dL Hct (34.0-46.0) % MCV (80.0-100.0) fL MCH (25.0-35.0) pg MCHC (31.0-37.0) g/dL RDW (11.5-15.5) % Plt Count MPV Neutrophils % % Lymphocytes % % Monocytes % % Eosinophils % % Basophils % % Neutrophils # (1.3-7.7) k/uL Lymphocytes # (1.0-4.8) k/uL Monocytes # (0-1.0) k/uL Eosinophils # (0-0.7) k/uL Basophils # (0-0.2) k/uL Sodium (137-145) mmol/L Potassium (3.5-5.1) mmol/L Chloride (98-107) mmol/L Carbon Dioxide (22-30) mmol/L Anion Gap mmol/L BUN (7-17) mg/dL Creatinine (0.52-1.04) mg/dL Est GFR (CKD-EPI)AfAm (>60 ml/min/1.73 sqM) Est GFR (CKD-EPI)NonAf (>60 ml/min/1.73 sqM) Glucose (74-99) mg/dL POC Glucose (mg/dL) 331 H (75-99) mg/dL POC Glu Coverer JER Nehemias Aguirre Lactic Ac Sepsis Rflx Plasma Lactic Acid Jose Luis (0.7-2.0) mmol/L Calcium (8.4-10.2) mg/dL Phosphorus (2.5-4.5) mg/dL Magnesium (1.6-2.3) mg/dL Total Bilirubin (0.2-1.3) mg/dL AST (14-36) U/L ALT (4-34) U/L Alkaline Phosphatase (38-126) U/L Total Protein (6.3-8.2) g/dL Albumin (3.5-5.0) g/dL Urine Color Urine Appearance (Clear) Urine pH (5.0-8.0) Ur Specific [place] (1.001-1.035) Urine Protein (Negative) Urine Glucose (UA) (Negative) Urine Ketones (Negative) Urine Blood (Negative) Urine Nitrite (Negative) Urine Bilirubin (Negative) Urine Urobilinogen (<2.0) mg/dL Ur Leukocyte Esterase (Negative) Urine RBC (0-5) /hpf Urine WBC (0-5) /hpf Ur Squamous Epith Cells (0-4) /hpf Urine Mucus (None) /hpf Acetone, Qual (Negative) Disposition Clinical Impression: Seizure, Hyperglycemia Disposition: HOME SELF-CARE Condition: Stable Instructions (If sedation given, give patient instructions): Epilepsy (DC), Recurrent Seizures in Adults (ED) Additional Instructions: Follow-up with neurologist. Return to emergency department if symptoms worsen. Is patient prescribed a controlled substance at d/c from ED?: No Referrals: Felicitas Dickinson MD [Primary Care Provider] - 1-2 days Kemal Menon MD [STAFF PHYSICIAN] - 1-2 days Time of Disposition: 21:28
[2020-11-21 20:40] LABS: ALT 109 U/L (4-34); AST 101 U/L (14-36); African American GFR (CKD) >90 (>60 ml/min/1.73 sqM); Albumin 4.7 g/dL (3.5-5.0); Alkaline Phosphatase 149 U/L (38-126); Anion Gap 14 mmol/L; Blood Urea Nitrogen 10 mg/dL (7-17); Calcium 10.1 mg/dL (8.4-10.2); Carbon Dioxide 23 mmol/L (22-30); Chloride 98 mmol/L (98-107); Glucose 436 mg/dL (74-99); Magnesium 1.6 mg/dL (1.6-2.3); Non-African American GFR(CKD) >90 (>60 ml/min/1.73 sqM); Phosphorus 4.6 mg/dL (2.5-4.5); Potassium 4.5 mmol/L (3.5-5.1); Sodium 135 mmol/L (137-145); Total Bilirubin 0.3 mg/dL (0.2-1.3); Total Protein 7.7 g/dL (6.3-8.2)
[2020-11-21] MEDS ORDERED: INSULIN ASPART (NovoLOG) 100 UNIT/ML VIAL SQ ONE ×2 (20:43→20:51)
[2020-11-21 20:48] LABS: Appearance,Urine Clear (Clear); Basophils # (A) 0.1 k/uL (0-0.2); Basophils % (A) 1 %; Bilirubin,Urine Negative (Negative); Blood,Urine Trace (Negative); Color,Urine Light Yellow; Eosinophils # (A) 0.3 k/uL (0-0.7); Eosinophils % (A) 2 %; Glucose,Urine (UA) 4+ (Negative); HCT 44.5 % (34.0-46.0); HGB 14.6 gm/dL (11.4-16.0); Ketones,Urine Negative (Negative); Leukocyte Esterase,Urine Negative (Negative); Lymphocytes % (A) 31 %; MCH 26.9 pg (25.0-35.0); MCHC 32.8 g/dL (31.0-37.0); Mean Platelet Volume 10.7; Monocytes # (A) 0.5 k/uL (0-1.0); Monocytes % (A) 4 %; Mucus,Urine Rare /hpf; Neutrophils # (A) 7.8 k/uL (1.3-7.7); Neutrophils % (A) 60 %; Nitrite,Urine Negative (Negative); PH, Urine 5.5 (5.0-8.0); Protein,Urine Negative (Negative); RBC 5.42 m/uL (3.80-5.40); RBC,Urine <1 /hpf (0-5); RDW 14.6 % (11.5-15.5); Specific Gravity,Urine 1.038 (1.001-1.035); Squamous Epithelial Cell,Urine 1 /hpf (0-4); Urobilinogen,Urine <2.0 mg/dL (<2.0); WBC 12.9 k/uL (3.8-10.6); WBC,Urine 2 /hpf (0-5)
[2020-11-21 20:50] LABS: Glucose,Whole Blood 372 mg/dL (75-99)
[2020-11-21 21:30] LABS: Glucose,Whole Blood 378 mg/dL (75-99)
[2020-11-21 21:32] VITALS: BP 137/76; PULSE 101; RESP 18; TEMP 98.5
[2020-11-21] MEDS ORDERED: SODIUM CHLORIDE 0.9% 1,000 ML IV ONE (21:32)
[2020-11-21 22:00] LABS: Glucose,Whole Blood 331 mg/dL (75-99)
[2020-11-21] MEDS ORDERED: INSULIN REGULAR 100 UNIT/ML VIAL IV ONE (22:15)
== END 2020-11-21 22:45 | disposition home or self-care (01) ==
LOC: EC 19:15
DX: R56.9 Unspecified convulsions (principal); E11.65 Type 2 diabetes mellitus with hyperglycemia; J45.909 Unspecified asthma, uncomplicated; F32.9 Major depressive disorder, single episode, unspecified; Z90.09 Acquired absence of other part of head and neck
CPT/HCPCS: 36415; 80053; 80175; 81001; 82009; 83605; 83735; 84100; 85025; 93005; 96361; 96374; 99284

== ENCOUNTER 2020-12-09 20:51 | Emergency (ER) | payer OTHER ==
[2020-12-09 20:55] VITALS: RESP 18; TEMP 97.6
[2020-12-09 21:00] LABS: Glucose,Whole Blood 313 mg/dL (75-99)
[2020-12-09] MEDS ORDERED: SODIUM CHLORIDE 0.9% 1,000 ML IV ONE ×2 (21:12→22:46)
--- NOTE | 2020-12-09 21:37 | ED ---
General Adult HPI - General Chief complaint: Recheck/Abnormal Lab/Rx Stated complaint: high blood sugar Time Seen by Provider: 12/09/20 20:58 Source: patient Mode of arrival: ambulatory Limitations: no limitations - History of Present Illness Initial comments: This patient is 25-year-old woman with history of diabetes, who presents for evaluation after she found her blood sugar was high. The patient states she had gone to work this evening and then was not feeling well. She was a little lightheaded, not feeling well, and had a touch of nausea. She checked her blood sugar and it was proximally 430. The patient states she has been compliant with her medication. She denies symptoms of infection. -: hour(s) Severity scale (1-10): 0 Improves with: none Worsens with: none Associated Symptoms: malaise, nausea/vomiting Treatments Prior to Arrival: none - Related Data Home Medications Medication Instructions Recorded Confirmed No Known Home Medications 03/18/19 03/18/19 Allergies Allergy/AdvReac Type Severity Reaction Status Date / Time Latex, Natural Rubber Allergy Rash/Hives Verified 12/09/20 20:54 Penicillins Allergy Unknown Verified 12/09/20 20:54 Review of Systems ROS Statement: Those systems with pertinent positive or pertinent negative responses have been documented in the HPI. ROS Other: All systems not noted in ROS Statement are negative. Constitutional: Denies: fever, chills ENT: Denies: throat pain, congestion Respiratory: Denies: cough, dyspnea Cardiovascular: Denies: chest pain, palpitations, edema, syncope Gastrointestinal: Reports: nausea. Denies: abdominal pain, vomiting, diarrhea Genitourinary: Denies: dysuria, frequency, hematuria, abnormal menses Musculoskeletal: Denies: back pain Skin: Denies: rash Neurological: Denies: headache, weakness Past Medical History Past Medical History: Asthma, Diabetes Mellitus, Seizure Disorder History of Any Multi-Drug Resistant Organisms: None Reported Past Surgical History: Tonsillectomy Past Psychological History: Anxiety, Bipolar, Depression Smoking Status: Never smoker, Vaper Past Alcohol Use History: None Reported Past Drug Use History: None Reported General Exam Limitations: no limitations General appearance: alert, in no apparent distress Head exam: Present: atraumatic, normocephalic Eye exam: Present: normal appearance. Absent: scleral icterus, conjunctival injection ENT exam: Present: normal oropharynx Neck exam: Present: normal inspection Respiratory exam: Present: normal lung sounds bilaterally. Absent: respiratory distress, wheezes, rales, rhonchi, stridor Cardiovascular Exam: Present: regular rate, normal rhythm, normal heart sounds. Absent: systolic murmur, diastolic murmur, rubs, gallop GI/Abdominal exam: Present: soft. Absent: distended, tenderness, guarding, rebound, rigid, mass Extremities exam: Present: normal inspection, normal capillary refill. Absent: pedal edema, calf tenderness Back exam: Present: normal inspection. Absent: CVA tenderness (R), CVA tenderness (L) Neurological exam: Present: alert Skin exam: Present: warm, dry, intact, normal color. Absent: rash Course Vital Signs 12/09/20 20:52 Temperature 97.6 F Pulse Rate 106 H Respiratory 18 Rate Blood Pressure 110/63 O2 Sat by Pulse 98 Oximetry Medical Decision Making - Lab Data Result diagrams: 12/09/20 Unknown 12/09/20 Unknown Lab Results 12/09/20 12/09/20 12/09/20 Range/Units 20:58 22:53 Unknown WBC 12.1 H (3.8-10.6) k/uL RBC 4.91 (3.80-5.40) m/uL Hgb 13.6 (11.4-16.0) gm/dL Hct 39.9 (34.0-46.0) % MCV 81.2 (80.0-100.0) fL MCH 27.7 (25.0-35.0) pg MCHC 34.1 (31.0-37.0) g/dL RDW 13.7 (11.5-15.5) % Plt Count 551 H (150-450) k/uL MPV 7.7 Neutrophils % 66 % Lymphocytes % 26 % Monocytes % 3 % Eosinophils % 4 % Basophils % 1 % Neutrophils # 8.0 H (1.3-7.7) k/uL Lymphocytes # 3.1 (1.0-4.8) k/uL Monocytes # 0.4 (0-1.0) k/uL Eosinophils # 0.4 (0-0.7) k/uL Basophils # 0.1 (0-0.2) k/uL Sodium (137-145) mmol/L Potassium (3.5-5.1) mmol/L Chloride (98-107) mmol/L Carbon Dioxide (22-30) mmol/L Anion Gap mmol/L BUN (7-17) mg/dL Creatinine (0.52-1.04) mg/dL Est GFR (CKD-EPI)AfAm (>60 ml/min/1.73 sqM) Est GFR (CKD-EPI)NonAf (>60 ml/min/1.73 sqM) Glucose (74-99) mg/dL POC Glucose (mg/dL) 313 H 283 H (75-99) mg/dL POC Glu Engineering Program Analyst ID Cuca Busby Muranda Calcium (8.4-10.2) mg/dL Total Bilirubin (0.2-1.3) mg/dL AST (14-36) U/L ALT (4-34) U/L Alkaline Phosphatase (38-126) U/L Total Protein (6.3-8.2) g/dL Albumin (3.5-5.0) g/dL Acetone, Qual (Negative) 12/09/20 Range/Units Unknown WBC (3.8-10.6) k/uL RBC (3.80-5.40) m/uL Hgb (11.4-16.0) gm/dL Hct (34.0-46.0) % MCV (80.0-100.0) fL MCH (25.0-35.0) pg MCHC (31.0-37.0) g/dL RDW (11.5-15.5) % Plt Count (150-450) k/uL MPV Neutrophils % % Lymphocytes % % Monocytes % % Eosinophils % % Basophils % % Neutrophils # (1.3-7.7) k/uL Lymphocytes # (1.0-4.8) k/uL Monocytes # (0-1.0) k/uL Eosinophils # (0-0.7) k/uL Basophils # (0-0.2) k/uL Sodium 135 L (137-145) mmol/L Potassium 4.0 (3.5-5.1) mmol/L Chloride 98 (98-107) mmol/L Carbon Dioxide 27 (22-30) mmol/L Anion Gap 10 mmol/L BUN 15 (7-17) mg/dL Creatinine 0.42 L (0.52-1.04) mg/dL Est GFR (CKD-EPI)AfAm >90 (>60 ml/min/1.73 sqM) Est GFR (CKD-EPI)NonAf >90 (>60 ml/min/1.73 sqM) Glucose 339 H (74-99) mg/dL POC Glucose (mg/dL) (75-99) mg/dL POC Glu Engineering Program Analyst ID Calcium 9.3 (8.4-10.2) mg/dL Total Bilirubin 0.2 (0.2-1.3) mg/dL AST 75 H (14-36) U/L ALT 80 H (4-34) U/L Alkaline Phosphatase 119 (38-126) U/L Total Protein 7.2 (6.3-8.2) g/dL Albumin 4.2 (3.5-5.0) g/dL Acetone, Qual Negative (Negative) Disposition Clinical Impression: Hyperglycemia Disposition: HOME SELF-CARE Condition: Good Instructions (If sedation given, give patient instructions): Diabetic Hyperglycemia (ED) Is patient prescribed a controlled substance at d/c from ED?: No Referrals: Felicitas Dickinson MD [Primary Care Provider] - 1-2 days
[2020-12-09 21:39] LABS: ALT 80 U/L (4-34); AST 75 U/L (14-36); African American GFR (CKD) >90 (>60 ml/min/1.73 sqM); Albumin 4.2 g/dL (3.5-5.0); Alkaline Phosphatase 119 U/L (38-126); Anion Gap 10 mmol/L; Blood Urea Nitrogen 15 mg/dL (7-17); Calcium 9.3 mg/dL (8.4-10.2); Carbon Dioxide 27 mmol/L (22-30); Chloride 98 mmol/L (98-107); Glucose 339 mg/dL (74-99); Non-African American GFR(CKD) >90 (>60 ml/min/1.73 sqM); Sodium 135 mmol/L (137-145); Total Bilirubin 0.2 mg/dL (0.2-1.3); Total Protein 7.2 g/dL (6.3-8.2)
[2020-12-09 21:54] LABS: Basophils # (A) 0.1 k/uL (0-0.2); Basophils % (A) 1 %; Eosinophils # (A) 0.4 k/uL (0-0.7); Eosinophils % (A) 4 %; HCT 39.9 % (34.0-46.0); HGB 13.6 gm/dL (11.4-16.0); Lymphocytes # (A) 3.1 k/uL (1.0-4.8); Lymphocytes % (A) 26 %; MCH 27.7 pg (25.0-35.0); MCHC 34.1 g/dL (31.0-37.0); MCV 81.2 fL (80.0-100.0); Mean Platelet Volume 7.7; Monocytes # (A) 0.4 k/uL (0-1.0); Monocytes % (A) 3 %; Neutrophils % (A) 66 %; Platelet Count 551 k/uL (150-450); RBC 4.91 m/uL (3.80-5.40); RDW 13.7 % (11.5-15.5); WBC 12.1 k/uL (3.8-10.6)
[2020-12-09] MEDS ORDERED: INSULIN REGULAR 100 UNIT/ML VIAL (IM/SQ) SQ STA (22:42)
[2020-12-09 22:55] LABS: Glucose,Whole Blood 283 mg/dL (75-99)
[2020-12-09] MEDS ORDERED: INSULIN REGULAR 100 UNIT/ML VIAL (IM/SQ) SQ ONE (22:57)
[2020-12-10 00:24] VITALS: BP 110/73; PULSE 87
== END 2020-12-10 00:26 | disposition home or self-care (01) ==
LOC: EC 20:51
DX: E11.65 Type 2 diabetes mellitus with hyperglycemia (principal); R11.2 Nausea with vomiting, unspecified; J45.909 Unspecified asthma, uncomplicated; G40.909 Epilepsy, unspecified, not intractable, without status epilepticus; F31.9 Bipolar disorder, unspecified; F41.9 Anxiety disorder, unspecified; Z88.0 Allergy status to penicillin
CPT/HCPCS: 36415; 80053; 82009; 85025; 96360; 96361; 99284

== ENCOUNTER 2021-01-14 16:04 | Emergency (ER) | payer OTHER ==
[2021-01-14 16:30] VITALS: RESP 16
[2021-01-14 16:41] LABS: Glucose,Whole Blood 306 mg/dL (75-99)
[2021-01-14] MEDS ORDERED: levETIRAcetam IV 1,000 MG in SALINE 1 100ML.BAG IVPB STA (17:03)
[2021-01-14] MEDS ORDERED: SODIUM CHLORIDE 0.9% 1,000 ML IV STA (17:03)
[2021-01-14 17:35] LABS: HCG,Qualitative Serum Not Detected
[2021-01-14 17:42] LABS: Appearance,Urine Cloudy (Clear); Bacteria,Urine Occasional /hpf; Bilirubin,Urine Negative (Negative); Blood,Urine Large (Negative); Color,Urine Light Yellow; Glucose,Urine (UA) 4+ (Negative); Ketones,Urine Negative (Negative); Leukocyte Esterase,Urine Large (Negative); Mucus,Urine Rare /hpf; Nitrite,Urine Negative (Negative); PH, Urine 6.5 (5.0-8.0); Protein,Urine 1+ (Negative); RBC,Urine 175 /hpf (0-5); Specific Gravity,Urine 1.031 (1.001-1.035); Squamous Epithelial Cell,Urine 12 /hpf (0-4); Urobilinogen,Urine <2.0 mg/dL (<2.0); WBC,Urine 130 /hpf (0-5)
[2021-01-14 17:58] LABS: ALT 85 U/L (4-34); AST 84 U/L (14-36); African American GFR (CKD) >90 (>60 ml/min/1.73 sqM); Albumin 4.3 g/dL (3.5-5.0); Alkaline Phosphatase 127 U/L (38-126); Anion Gap 12 mmol/L; Basophils % (A) 1 %; Blood Urea Nitrogen 11 mg/dL (7-17); Calcium 9.6 mg/dL (8.4-10.2); Carbon Dioxide 23 mmol/L (22-30); Chloride 99 mmol/L (98-107); Eosinophils % (A) 2 %; Glucose 363 mg/dL (74-99); HCT 43.1 % (34.0-46.0); HGB 14.5 gm/dL (11.4-16.0); Lymphocytes # (A) 2.7 k/uL (1.0-4.8); Lymphocytes % (A) 25 %; MCH 29.1 pg (25.0-35.0); MCHC 33.7 g/dL (31.0-37.0); Magnesium 1.6 mg/dL (1.6-2.3); Mean Platelet Volume 8.5; Monocytes % (A) 3 %; Neutrophils # (A) 7.2 k/uL (1.3-7.7); Neutrophils % (A) 68 %; Non-African American GFR(CKD) >90 (>60 ml/min/1.73 sqM); Platelet Count 463 k/uL (150-450); Potassium 4.7 mmol/L (3.5-5.1); RBC 4.98 m/uL (3.80-5.40); RDW 14.4 % (11.5-15.5); Sodium 134 mmol/L (137-145); Total Bilirubin 0.4 mg/dL (0.2-1.3); Total Protein 7.1 g/dL (6.3-8.2); WBC 10.6 k/uL (3.8-10.6)
[2021-01-14 17:59] LABS: Basophils # (A) 0.1 k/uL (0-0.2); Eosinophils # (A) 0.2 k/uL (0-0.7); Monocytes # (A) 0.3 k/uL (0-1.0)
[2021-01-14 18:02] LABS: MCV 86.6 fL (80.0-100.0)
[2021-01-14] MEDS ORDERED: INSULIN ASPART (NovoLOG) 100 UNIT/ML VIAL SQ STA (18:08)
[2021-01-14] MEDS ORDERED: INSULIN ASPART (NovoLOG) 100 UNIT/ML VIAL SQ ONE (18:35)
--- NOTE | 2021-01-14 18:54 | ED ---
General Adult HPI - General Chief complaint: Seizure Stated complaint: seizures Time Seen by Provider: 01/14/21 16:30 Source: patient, RN notes reviewed, old records reviewed Mode of arrival: EMS Limitations: no limitations - History of Present Illness Initial comments: Patient is a 25-year-old female with past medical history remarkable for asthma, diabetes, seizure disorder on 500 mg Keppra twice a day presents emergency Department approximately an hour to an hour and a half after experiencing a seizure at work which self resolved. Was described to her as generalized tonic- clonic lasting seconds.. Patient states she is bending forward when she fell she is not having seizure. She remembers is she was on the ground with coworkers around her. She is simply she heard anything and denies hitting her head. Denies any headache, abdominal pain, chest pain, extremity pain at this time. She states her sugars were elevated prior to the seizure. She has not missed any of her medications. She denies any fevers, chills, cough. Denies biting he r tongue or experiencing urinary incontinence. She presents with a friend due to her seizure. She otherwise has no other acute complaints at this time, including denying headache, weakness, numbness. No fevers, chills, sick contacts. - Related Data Home Medications Medication Instructions Recorded Confirmed Insulin Glargine,Hum.rec.anlog 20 unit SQ HS 12/10/20 01/14/21 [Lantus Solostar] sitaGLIPtin [Januvia] 100 mg PO DAILY 12/10/20 01/14/21 Albuterol Sulfate [Proair Hfa] 2 puff INHALATION RT-QID PRN 01/14/21 01/14/21 Diclofenac Sodium [Voltaren] 75 mg PO BID 01/14/21 01/14/21 levETIRAcetam [Keppra] 500 mg PO Q12HR 01/14/21 01/14/21 tiZANidine [Zanaflex] 4 mg PO HS PRN 01/14/21 01/14/21 Allergies Allergy/AdvReac Type Severity Reaction Status Date / Time Latex, Natural Rubber Allergy Rash/Hives Verified 01/14/21 17:54 Penicillins Allergy Unknown Verified 01/14/21 17:54 Review of Systems ROS Statement: Those systems with pertinent positive or pertinent negative responses have been documented in the HPI. Review of Systems: CONST: Denies fever EYES: Denies blurry vision ENT: Denies nasal congestion C/V: Denies Chest pain RESP: Denies shortness of breath GI: Denies abdominal pain : Denies dysuria SKIN: Denies rash. MSK: Denies joint pain. NEURO: Denies headache ROS Other: All systems not noted in ROS Statement are negative. Past Medical History Past Medical History: Asthma, Diabetes Mellitus, Seizure Disorder History of Any Multi-Drug Resistant Organisms: None Reported Past Surgical History: Tonsillectomy Past Anesthesia/Blood Transfusion Reactions: No Reported Reaction Past Psychological History: Anxiety, Bipolar, Depression Smoking Status: Vaper Past Alcohol Use History: None Reported Past Drug Use History: None Reported General Exam - General Exam Comments Initial Comments: General: Appears in no acute distress. HEAD: Normal with no signs of head trauma. EYES: PERRLA, EOMI, conjunctiva normal, no discharge. Pupils are 3 mm and equally reactive. ENT: Hearing grossly intact, normal oropharynx. RESPIRATORY: Clear breath sounds bilaterally. No wheezes, rales, or rhonchi. C/V: Regular rate and rhythm. S1 and S2 auscultated, no edema, peripheral pulses 2+ and intact throughout ABD: Abd is soft, nontender, nondistended EXT: Normal range of motion, no obvious deformity SKIN: No rashes or lesions observed on exposed skin. NEURO: Alert and oriented x 4. Cranial nerves II-XII intact. No focal sensory or strength deficits. Cerebellar function is within normal limits as evident by normal finger to nose testing, [id number] testing. Patient is ambulatory without difficulty. NIH stroke scale is 0. GCS is 15. Neurological exam is within normal limits. Limitations: no limitations Course Vital Signs 01/14/21 01/14/21 16:28 19:09 Temperature 98.6 F 98.2 F Pulse Rate 88 78 Respiratory 16 16 Rate Blood Pressure 108/62 128/78 O2 Sat by Pulse 97 98 Oximetry Medical Decision Making - Medical Decision Making Based on the patient's presentation and physical exam, she likely explains of breakthrough seizure. She is compliant with her medications, however we will provide her with IV dose of IV Keppra while here in the department. She occurred precautions were placed. We will obtain an EKG as well as basic laboratory studies. She will receive a 1 L fluid bolus as well. The patient was in agreement with this plan. She'll be maintained on continuous cardiac monitoring while she is here in the department. Patient's EKG shows no signs of acute ischemia. Patient's laboratory studies are remarkable for a hyperglycemia in the setting of insulin dependent diabetes. Patient's urinalysis is a contaminated catch. The remainder of her laboratory studies are relatively unremarkable, except for mildly elevated LFTs of 80 and 85 respectively. She is not . Patient will be given a dose of insulin for her hyperglycemia. She is tolerating by mouth intake at this time. She was observed for 3 hours in the department and did not experience additional breakthrough seizure. I do believe it is safe for her to be discharged home at this time. She was in agreement with the plan. She has a prescription for her home Keppra and does not require refill. I instructed the patient to follow up with their PCP in the next 3 days. I explained that the patient should return to the emergency department if they experience any worsening symptoms. Strict return precautions were discussed with the patient. The patient expressed understanding of these instructions. I answered all questions that the patient had. The patient was discharged home in good condition with their prescriptions and follow up information. - Lab Data Result diagrams: 01/14/21 17:08 01/14/21 17:08 Lab Results 01/14/21 01/14/21 01/14/21 Range/Units 16:32 17:08 17:08 WBC 10.6 (3.8-10.6) k/uL RBC 4.98 (3.80-5.40) m/uL Hgb 14.5 (11.4-16.0) gm/dL Hct 43.1 (34.0-46.0) % MCV 86.6 D (80.0-100.0) fL MCH 29.1 (25.0-35.0) pg MCHC 33.7 (31.0-37.0) g/dL RDW 14.4 (11.5-15.5) % Plt Count 463 H (150-450) k/uL MPV 8.5 Neutrophils % 68 % Lymphocytes % 25 % Monocytes % 3 % Eosinophils % 2 % Basophils % 1 % Neutrophils # 7.2 (1.3-7.7) k/uL Lymphocytes # 2.7 (1.0-4.8) k/uL Monocytes # 0.3 (0-1.0) k/uL Eosinophils # 0.2 (0-0.7) k/uL Basophils # 0.1 (0-0.2) k/uL Sodium (137-145) mmol/L Potassium (3.5-5.1) mmol/L Chloride (98-107) mmol/L Carbon Dioxide (22-30) mmol/L Anion Gap mmol/L BUN (7-17) mg/dL Creatinine (0.52-1.04) mg/dL Est GFR (CKD-EPI)AfAm (>60 ml/min/1.73 sqM) Est GFR (CKD-EPI)NonAf (>60 ml/min/1.73 sqM) Glucose (74-99) mg/dL POC Glucose (mg/dL) 306 H (75-99) mg/dL POC Glu Enterprise Integration Architect ID Willing, Pili Calcium (8.4-10.2) mg/dL Magnesium (1.6-2.3) mg/dL Total Bilirubin (0.2-1.3) mg/dL AST (14-36) U/L ALT (4-34) U/L Alkaline Phosphatase (38-126) U/L Total Protein (6.3-8.2) g/dL Albumin (3.5-5.0) g/dL HCG, Qual Urine Color Light Yellow Urine Appearance Cloudy H (Clear) Urine pH 6.5 (5.0-8.0) Ur Specific [place] 1.031 (1.001-1.035) Urine Protein 1+ H (Negative) Urine Glucose (UA) 4+ H (Negative) Urine Ketones Negative (Negative) Urine Blood Large H (Negative) Urine Nitrite Negative (Negative) Urine Bilirubin Negative (Negative) Urine Urobilinogen <2.0 (<2.0) mg/dL Ur Leukocyte Esterase Large H (Negative) Urine RBC 175 H (0-5) /hpf Urine WBC 130 H (0-5) /hpf Ur Squamous Epith Cells 12 H (0-4) /hpf Urine Bacteria Occasional H (None) /hpf Urine Mucus Rare H (None) /hpf 01/14/21 Range/Units 17:08 WBC (3.8-10.6) k/uL RBC (3.80-5.40) m/uL Hgb (11.4-16.0) gm/dL Hct (34.0-46.0) % MCV (80.0-100.0) fL MCH (25.0-35.0) pg MCHC (31.0-37.0) g/dL RDW (11.5-15.5) % Plt Count (150-450) k/uL MPV Neutrophils % % Lymphocytes % % Monocytes % % Eosinophils % % Basophils % % Neutrophils # (1.3-7.7) k/uL Lymphocytes # (1.0-4.8) k/uL Monocytes # (0-1.0) k/uL Eosinophils # (0-0.7) k/uL Basophils # (0-0.2) k/uL Sodium 134 L (137-145) mmol/L Potassium 4.7 (3.5-5.1) mmol/L Chloride 99 (98-107) mmol/L Carbon Dioxide 23 (22-30) mmol/L Anion Gap 12 mmol/L BUN 11 (7-17) mg/dL Creatinine 0.36 L (0.52-1.04) mg/dL Est GFR (CKD-EPI)AfAm >90 (>60 ml/min/1.73 sqM) Est GFR (CKD-EPI)NonAf >90 (>60 ml/min/1.73 sqM) Glucose 363 H (74-99) mg/dL POC Glucose (mg/dL) (75-99) mg/dL POC Glu Enterprise Integration Architect ID Calcium 9.6 (8.4-10.2) mg/dL Magnesium 1.6 (1.6-2.3) mg/dL Total Bilirubin 0.4 (0.2-1.3) mg/dL AST 84 H (14-36) U/L ALT 85 H (4-34) U/L Alkaline Phosphatase 127 H (38-126) U/L Total Protein 7.1 (6.3-8.2) g/dL Albumin 4.3 (3.5-5.0) g/dL HCG, Qual Not Detected Urine Color Urine Appearance (Clear) Urine pH (5.0-8.0) Ur Specific [place] (1.001-1.035) Urine Protein (Negative) Urine Glucose (UA) (Negative) Urine Ketones (Negative) Urine Blood (Negative) Urine Nitrite (Negative) Urine Bilirubin (Negative) Urine Urobilinogen (<2.0) mg/dL Ur Leukocyte Esterase (Negative) Urine RBC (0-5) /hpf Urine WBC (0-5) /hpf Ur Squamous Epith Cells (0-4) /hpf Urine Bacteria (None) /hpf Urine Mucus (None) /hpf - EKG Data -: EKG Interpreted by Me EKG Comments: 12-lead Electrocardiogram Interpretation Note EKG was reviewed and interpreted by myself. 12-lead ECG performed at 1630 is interpreted by me as revealing normal sinus rhythm at a rate of 83 beats per minute. [place] is normal. ID interval is 168 ms, QRS duration is 92 ms, QTc is 434 ms.. There were no ST or T wave abnormalities to suggest myocardial ischemia or injury. R wave progression across the precordium was satisfactory. By my interpretation this EKG is non-diagnostic for acute ischemia. Disposition Clinical Impression: Seizure, Seizure disorder, Hyperglycemia Disposition: HOME SELF-CARE Condition: Good Instructions (If sedation given, give patient instructions): Recurrent Seizures in Adults (ED) Is patient prescribed a controlled substance at d/c from ED?: No Referrals: Felicitas Dickinson MD [Primary Care Provider] - 1-2 days
[2021-01-14 19:10] VITALS: BP 128/78; PULSE 78; TEMP 98.2
== END 2021-01-14 19:09 | disposition home or self-care (01) ==
LOC: EC 16:04
DX: G40.909 Epilepsy, unspecified, not intractable, without status epilepticus (principal); E11.65 Type 2 diabetes mellitus with hyperglycemia; J45.909 Unspecified asthma, uncomplicated; F41.9 Anxiety disorder, unspecified; F31.9 Bipolar disorder, unspecified; F17.290 Nicotine dependence, other tobacco product, uncomplicated; Z79.4 Long term (current) use of insulin; Z91.040 Latex allergy status; Z88.0 Allergy status to penicillin; Z90.89 Acquired absence of other organs
CPT/HCPCS: 99285; 96374; 96361; 36415; 93005; 80053; 83735; 85025; 81001; 84703; 87086; J1953

== ENCOUNTER 2021-03-10 20:57 | Emergency (ER) | payer OTHER ==
[2021-03-10 21:05] VITALS: RESP 17; TEMP 98.2
[2021-03-10] MEDS ORDERED: KETOROLAC 15 MG/ML 1 ML VIAL IVP STA (21:25)
--- NOTE | 2021-03-10 21:28 | ED ---
Seizure HPI - General Chief Complaint: Seizure Stated Complaint: Seizure Time Seen by Provider: 03/10/21 21:01 Source: patient, EMS Mode of arrival: EMS Limitations: no limitations - History of Present Illness MD Complaint: seizure -: minutes(s) Description of Episode: loss of consciousness, tonic-clonic movement Trauma: Yes Seizure History: known seizure disorder Place: home Possible Precipitating Event: none Associated Symptoms: denies other symptoms Treatments Prior to Arrival: none - Related Data Home Medications Medication Instructions Recorded Confirmed Insulin Glargine,Hum.rec.anlog 20 unit SQ HS 12/10/20 01/14/21 [Lantus Solostar] sitaGLIPtin [Januvia] 100 mg PO DAILY 12/10/20 01/14/21 Albuterol Sulfate [Proair Hfa] 2 puff INHALATION RT-QID PRN 01/14/21 01/14/21 Diclofenac Sodium [Voltaren] 75 mg PO BID 01/14/21 01/14/21 levETIRAcetam [Keppra] 500 mg PO Q12HR 01/14/21 01/14/21 tiZANidine [Zanaflex] 4 mg PO HS PRN 01/14/21 01/14/21 Allergies Allergy/AdvReac Type Severity Reaction Status Date / Time Latex, Natural Rubber Allergy Rash/Hives Verified 01/14/21 17:54 Penicillins Allergy Unknown Verified 01/14/21 17:54 Review of Systems ROS Statement: Those systems with pertinent positive or pertinent negative responses have been documented in the HPI. ROS Other: All systems not noted in ROS Statement are negative. Constitutional: Denies: fever, chills Eyes: Denies: eye pain, vision change ENT: Denies: ear pain, hearing loss, epistaxis Respiratory: Denies: cough, dyspnea Cardiovascular: Denies: chest pain, palpitations Gastrointestinal: Denies: abdominal pain, vomiting, diarrhea Genitourinary: Denies: dysuria, hematuria Musculoskeletal: Denies: back pain Skin: Denies: rash Neurological: Reports: headache. Denies: weakness, numbness, paresthesias Past Medical History Past Medical History: Asthma, Diabetes Mellitus, Seizure Disorder History of Any Multi-Drug Resistant Organisms: None Reported Past Surgical History: Tonsillectomy Past Anesthesia/Blood Transfusion Reactions: No Reported Reaction Past Psychological History: Anxiety, Bipolar, Depression, PTSD Smoking Status: Current some day smoker, Vaper Past Alcohol Use History: None Reported Past Drug Use History: None Reported General Exam Limitations: no limitations General appearance: alert, in no apparent distress Head exam: Present: normocephalic, other (Contusion scalp) Eye exam: Present: normal appearance, PERRL, EOMI. Absent: scleral icterus, conjunctival injection, nystagmus, periorbital swelling, periorbital tenderness ENT exam: Present: normal oropharynx, mucous membranes moist Neck exam: Present: normal inspection, full ROM. Absent: tenderness, meningismus Respiratory exam: Present: normal lung sounds bilaterally. Absent: respiratory distress, wheezes, rales, rhonchi, stridor, chest wall tenderness Cardiovascular Exam: Present: regular rate, normal rhythm, normal heart sounds. Absent: systolic murmur, diastolic murmur, rubs, gallop GI/Abdominal exam: Present: soft. Absent: distended, tenderness, guarding, rebound, rigid, mass Extremities exam: Present: normal inspection, normal capillary refill. Absent: pedal edema, calf tenderness Back exam: Present: normal inspection. Absent: CVA tenderness (R), CVA tenderness (L) Neurological exam: Present: alert, oriented X3, CN II-XII intact. Absent: motor sensory deficit Skin exam: Present: warm, dry, intact, normal color. Absent: rash Course Vital Signs 03/10/21 21:01 Temperature 98.2 F Pulse Rate 100 Respiratory 17 Rate Blood Pressure 130/69 O2 Sat by Pulse 98 Oximetry Medical Decision Making - Lab Data Result diagrams: 03/10/21 21:33 03/10/21 21:33 Lab Results 03/10/21 03/10/21 Range/Units 21:33 21:33 WBC 12.0 H (3.8-10.6) k/uL RBC 5.09 (3.80-5.40) m/uL Hgb 14.0 (11.4-16.0) gm/dL Hct 42.7 (34.0-46.0) % MCV 83.8 (80.0-100.0) fL MCH 27.5 (25.0-35.0) pg MCHC 32.8 (31.0-37.0) g/dL RDW 12.9 (11.5-15.5) % Plt Count 442 (150-450) k/uL MPV 7.9 Neutrophils % 67 % Lymphocytes % 26 % Monocytes % 3 % Eosinophils % 3 % Basophils % 1 % Neutrophils # 8.1 H (1.3-7.7) k/uL Lymphocytes # 3.1 (1.0-4.8) k/uL Monocytes # 0.3 (0-1.0) k/uL Eosinophils # 0.4 (0-0.7) k/uL Basophils # 0.1 (0-0.2) k/uL Sodium 134 L (137-145) mmol/L Potassium 4.7 (3.5-5.1) mmol/L Chloride 100 (98-107) mmol/L Carbon Dioxide 23 (22-30) mmol/L Anion Gap 11 mmol/L BUN 13 (7-17) mg/dL Creatinine 0.32 L (0.52-1.04) mg/dL Est GFR (CKD-EPI)AfAm >90 (>60 ml/min/1.73 sqM) Est GFR (CKD-EPI)NonAf >90 (>60 ml/min/1.73 sqM) Glucose 319 H (74-99) mg/dL Calcium 9.7 (8.4-10.2) mg/dL Total Bilirubin 0.6 (0.2-1.3) mg/dL AST 99 H (14-36) U/L ALT 98 H (4-34) U/L Alkaline Phosphatase 102 (38-126) U/L Total Protein 7.7 (6.3-8.2) g/dL Albumin 4.3 (3.5-5.0) g/dL Disposition Clinical Impression: Generalized seizure, Hyperglycemia due to diabetes mellitus Disposition: HOME SELF-CARE Condition: Good Instructions (If sedation given, give patient instructions): Seizure/Epilepsy Discharge Instructions & Follow-Up, Diabetic Hyperglycemia (ED) Is patient prescribed a controlled substance at d/c from ED?: No Referrals: Felicitas Dickinson MD [Primary Care Provider] - 1-2 days
[2021-03-10 21:42] LABS: Basophils # (A) 0.1 k/uL (0-0.2); Basophils % (A) 1 %; Eosinophils # (A) 0.4 k/uL (0-0.7); Eosinophils % (A) 3 %; HCT 42.7 % (34.0-46.0); Lymphocytes # (A) 3.1 k/uL (1.0-4.8); Lymphocytes % (A) 26 %; MCH 27.5 pg (25.0-35.0); MCHC 32.8 g/dL (31.0-37.0); MCV 83.8 fL (80.0-100.0); Mean Platelet Volume 7.9; Monocytes # (A) 0.3 k/uL (0-1.0); Monocytes % (A) 3 %; Neutrophils # (A) 8.1 k/uL (1.3-7.7); Neutrophils % (A) 67 %; Platelet Count 442 k/uL (150-450); RBC 5.09 m/uL (3.80-5.40); RDW 12.9 % (11.5-15.5)
--- NOTE | 2021-03-10 22:03 | CT ---
EXAMINATION TYPE: CT brain wo con DATE OF EXAM: 03/10/2021 COMPARISON: None HISTORY: h/o seizures CT DLP: 1092.4 mGycm Automated exposure control for dose reduction was used. CT brain without contrast. Ventricles have normal size. There is no mass effect nor midline shift. There is no evidence of intra cranial hemorrhage. Calvarium is intact. There is normal aeration of the mastoid sinuses. IMPRESSION: Negative unenhanced head CT scan.
[2021-03-10 22:13] LABS: ALT 98 U/L (4-34); African American GFR (CKD) >90 (>60 ml/min/1.73 sqM); Anion Gap 11 mmol/L; Blood Urea Nitrogen 13 mg/dL (7-17); Calcium 9.7 mg/dL (8.4-10.2); Carbon Dioxide 23 mmol/L (22-30); Chloride 100 mmol/L (98-107); Glucose 319 mg/dL (74-99); Non-African American GFR(CKD) >90 (>60 ml/min/1.73 sqM); Sodium 134 mmol/L (137-145); Total Bilirubin 0.6 mg/dL (0.2-1.3)
[2021-03-10 22:27] LABS: AST 99 U/L (14-36); Albumin 4.3 g/dL (3.5-5.0); Alkaline Phosphatase 102 U/L (38-126); Potassium 4.7 mmol/L (3.5-5.1); Total Protein 7.7 g/dL (6.3-8.2)
[2021-03-10] MEDS ORDERED: INSULIN REGULAR 100 UNIT/ML VIAL (IV) SQ STA (22:58)
[2021-03-10 23:12] VITALS: BP 125/63; PULSE 84
== END 2021-03-10 23:12 | disposition home or self-care (01) ==
LOC: EC 20:57
DX: R56.9 Unspecified convulsions (principal); E11.65 Type 2 diabetes mellitus with hyperglycemia; J45.909 Unspecified asthma, uncomplicated; F41.9 Anxiety disorder, unspecified; F31.9 Bipolar disorder, unspecified; F43.12 Post-traumatic stress disorder, chronic; F17.200 Nicotine dependence, unspecified, uncomplicated; Z79.4 Long term (current) use of insulin; Z88.0 Allergy status to penicillin; Z91.040 Latex allergy status; Z90.89 Acquired absence of other organs
CPT/HCPCS: 99285; 96374; 36415; 80053; 80177; 85025; 70450; J1885

== ENCOUNTER 2021-03-20 23:13 | Observation (INO) | payer OTHER ==
[2021-03-20] MEDS ORDERED: SODIUM CHLORIDE 0.9% 1,000 ML IV STA (23:41)
[2021-03-20] MEDS ORDERED: levETIRAcetam IV 1,000 MG in SALINE 1 100ML.BAG IVPB STA (23:42)
--- NOTE | 2021-03-20 23:49 | ED ---
Seizure HPI - General Chief Complaint: Headache Stated Complaint: poss seizure Time Seen by Provider: 03/20/21 23:17 Source: patient, EMS, RN notes reviewed, old records reviewed Mode of arrival: EMS Limitations: no limitations - History of Present Illness Initial Comments: This is a 25-year-old female to emergency. Patient Dese for evaluation. This i s recurrent seizure for this patient. Patient again does have seizure he does have history of seizures on Keppra. Despite The patient's taking as directed history of breakthrough seizures today patient concern for recurrent seizure here in the emergency department. Patient also states she had a recent diagnosis of possible brain tumor which is making her severely anxious and debilitated. Patient very shaky, tachycardic, short of breath here in the ER MD Complaint: seizure -: days(s) Description of Episode: loss of consciousness, tonic-clonic movement, post-event confusion -: second(s) Witnessed: yes - by bystander Trauma: Yes Seizure History: known seizure disorder Place: home Possible Precipitating Event: none Associated Symptoms: denies other symptoms Treatments Prior to Arrival: none - Related Data Home Medications Medication Instructions Recorded Confirmed Insulin Glargine,Hum.rec.anlog 20 unit SQ HS 12/10/20 01/14/21 [Lantus Solostar] sitaGLIPtin [Januvia] 100 mg PO DAILY 12/10/20 01/14/21 Albuterol Sulfate [Proair Hfa] 2 puff INHALATION RT-QID PRN 01/14/21 01/14/21 Diclofenac Sodium [Voltaren] 75 mg PO BID 01/14/21 01/14/21 levETIRAcetam [Keppra] 500 mg PO Q12HR 01/14/21 01/14/21 tiZANidine [Zanaflex] 4 mg PO HS PRN 01/14/21 01/14/21 Allergies Allergy/AdvReac Type Severity Reaction Status Date / Time Latex, Natural Rubber Allergy Rash/Hives Verified 03/20/21 23:25 Penicillins Allergy Unknown Verified 03/20/21 23:25 Review of Systems ROS Statement: Those systems with pertinent positive or pertinent negative responses have been documented in the HPI. ROS Other: All systems not noted in ROS Statement are negative. Past Medical History Past Medical History: Asthma, Diabetes Mellitus, Seizure Disorder Additional Past Medical History / Comment(s): anxiety History of Any Multi-Drug Resistant Organisms: None Reported Past Surgical History: Tonsillectomy Past Anesthesia/Blood Transfusion Reactions: No Reported Reaction Past Psychological History: Anxiety, Bipolar, Depression, PTSD Smoking Status: Current some day smoker, Vaper Past Alcohol Use History: None Reported Past Drug Use History: None Reported General Exam Limitations: no limitations General appearance: alert, in no apparent distress Head exam: Present: atraumatic, normocephalic, normal inspection Eye exam: Present: normal appearance, PERRL, EOMI. Absent: scleral icterus, conjunctival injection, periorbital swelling ENT exam: Present: normal exam, mucous membranes moist Neck exam: Present: normal inspection. Absent: tenderness, meningismus, lymphadenopathy Respiratory exam: Present: normal lung sounds bilaterally. Absent: respiratory distress, wheezes, rales, rhonchi, stridor Cardiovascular Exam: Present: normal rhythm, tachycardia, normal heart sounds. Absent: systolic murmur, diastolic murmur, rubs, gallop, clicks GI/Abdominal exam: Present: soft, normal bowel sounds. Absent: distended, tenderness, guarding, rebound, rigid Extremities exam: Present: normal inspection, full ROM, normal capillary refill. Absent: tenderness, pedal edema, joint swelling, calf tenderness Back exam: Present: normal inspection Neurological exam: Present: alert, oriented X3, CN II-XII intact Psychiatric exam: Present: normal affect, normal mood Skin exam: Present: warm, dry, intact, normal color. Absent: rash Course Vital Signs 03/20/21 23:19 Temperature 98.7 F Pulse Rate 102 H Respiratory 22 Rate Blood Pressure 127/78 O2 Sat by Pulse 96 Oximetry - Reevaluation(s) Reevaluation #1: 03/21/21 00:18 Record is reviewed Reevaluation #2: 03/21/21 00:18 Patient is having uncontrolled seizures, despite taking medication approp riately. Patient concern for recurrent seizures Reevaluation #3: 03/21/21 00:19 Patient also reports recent anxiety secondary to possible diagnosis of brain tumor - Consultations Consultation #1: spoke w [facility] who agree to admit this patient Medical Decision Making - Lab Data Result diagrams: 03/20/21 23:48 03/20/21 23:48 Lab Results 03/20/21 03/20/21 Range/Units 23:48 23:48 WBC 12.3 H (3.8-10.6) k/uL RBC 5.33 (3.80-5.40) m/uL Hgb 15.1 (11.4-16.0) gm/dL Hct 45.2 (34.0-46.0) % MCV 84.7 (80.0-100.0) fL MCH 28.2 (25.0-35.0) pg MCHC 33.3 (31.0-37.0) g/dL RDW 12.8 (11.5-15.5) % Plt Count 541 H (150-450) k/uL MPV 7.7 Neutrophils % 60 % Lymphocytes % 32 % Monocytes % 3 % Eosinophils % 3 % Basophils % 1 % Neutrophils # 7.4 (1.3-7.7) k/uL Lymphocytes # 3.9 (1.0-4.8) k/uL Monocytes # 0.4 (0-1.0) k/uL Eosinophils # 0.3 (0-0.7) k/uL Basophils # 0.1 (0-0.2) k/uL Sodium 135 L (137-145) mmol/L Potassium 4.3 (3.5-5.1) mmol/L Chloride 98 (98-107) mmol/L Carbon Dioxide 23 (22-30) mmol/L Anion Gap 14 mmol/L BUN 15 (7-17) mg/dL Creatinine 0.42 L (0.52-1.04) mg/dL Est GFR (CKD-EPI)AfAm >90 (>60 ml/min/1.73 sqM) Est GFR (CKD-EPI)NonAf >90 (>60 ml/min/1.73 sqM) Glucose 295 H (74-99) mg/dL Calcium 10.3 H (8.4-10.2) mg/dL Total Bilirubin 0.3 (0.2-1.3) mg/dL AST 75 H (14-36) U/L ALT 89 H (4-34) U/L Alkaline Phosphatase 117 (38-126) U/L Total Protein 7.9 (6.3-8.2) g/dL Albumin 4.5 (3.5-5.0) g/dL Salicylates <1.0 mg/dL Acetaminophen <10.0 ug/mL Disposition Clinical Impression: Generalized seizure, Recurrent seizures, Hyperglycemia due to diabetes mellitus Disposition: ADMITTED IP TO THIS HOSP
[2021-03-21] MEDS ORDERED: NALOXONE 0.4 MG/ML 1 ML VIAL IV PRN (00:12)
[2021-03-21 00:15] LABS: Basophils # (A) 0.1 k/uL (0-0.2); Basophils % (A) 1 %; Eosinophils # (A) 0.3 k/uL (0-0.7); Eosinophils % (A) 3 %; HCT 45.2 % (34.0-46.0); HGB 15.1 gm/dL (11.4-16.0); Lymphocytes # (A) 3.9 k/uL (1.0-4.8); Lymphocytes % (A) 32 %; MCH 28.2 pg (25.0-35.0); MCHC 33.3 g/dL (31.0-37.0); MCV 84.7 fL (80.0-100.0); Mean Platelet Volume 7.7; Monocytes # (A) 0.4 k/uL (0-1.0); Monocytes % (A) 3 %; Neutrophils # (A) 7.4 k/uL (1.3-7.7); Neutrophils % (A) 60 %; Platelet Count 541 k/uL (150-450); RBC 5.33 m/uL (3.80-5.40); RDW 12.8 % (11.5-15.5); WBC 12.3 k/uL (3.8-10.6)
[2021-03-21 00:25] LABS: Chloride 98 mmol/L (98-107)
[2021-03-21 00:27] LABS: ALT 89 U/L (4-34); AST 75 U/L (14-36); Acetaminophen <10.0 ug/mL; African American GFR (CKD) >90 (>60 ml/min/1.73 sqM); Albumin 4.5 g/dL (3.5-5.0); Alkaline Phosphatase 117 U/L (38-126); Anion Gap 14 mmol/L; Blood Urea Nitrogen 15 mg/dL (7-17); Calcium 10.3 mg/dL (8.4-10.2); Carbon Dioxide 23 mmol/L (22-30); Glucose 295 mg/dL (74-99); Non-African American GFR(CKD) >90 (>60 ml/min/1.73 sqM); Potassium 4.3 mmol/L (3.5-5.1); Salicylate <1.0 mg/dL; Sodium 135 mmol/L (137-145); Total Bilirubin 0.3 mg/dL (0.2-1.3); Total Protein 7.9 g/dL (6.3-8.2)
[2021-03-21 01:37] LABS: Amorphous Sediment,Urine Rare /hpf; Appearance,Urine Cloudy (Clear); Bacteria,Urine Many /hpf; Bilirubin,Urine Negative (Negative); Blood,Urine Moderate (Negative); Color,Urine Yellow; Glucose,Urine (UA) 4+ (Negative); Ketones,Urine Trace (Negative); Leukocyte Esterase,Urine Large (Negative); Nitrite,Urine Negative (Negative); Protein,Urine 1+ (Negative); RBC,Urine 12 /hpf (0-5); Specific Gravity,Urine 1.025 (1.001-1.035); Squamous Epithelial Cell,Urine 3 /hpf (0-4); Urobilinogen,Urine <2.0 mg/dL (<2.0); WBC,Urine 29 /hpf (0-5)
[2021-03-21 01:38] LABS: Amphetamine Screen,Urine Not Detected (NotDetected); Barbiturate Screen,Urine Not Detected (NotDetected); Benzodiazepines Screen,Urine Not Detected (NotDetected); Cocaine Screen,Urine Not Detected (NotDetected); Methadone Screen, Urine Not Detected (NotDetected); Opiate Screen,Urine Not Detected (NotDetected); Oxycodone Screen, Urine Not Detected (NotDetected); Phencyclidine Screen,Urine Not Detected (NotDetected); Tricyclic Antidepressant,Urine Not Detected (NotDetected); Urn Cannabinoid Scrn Not Detected (NotDetected)
[2021-03-21] MEDS ORDERED: ALBUTEROL NEBULIZED 2.5 MG/3 ML INHALATION PRN (08:27)
[2021-03-21] MEDS ORDERED: tiZANidine 4 MG TAB PO PRN (08:27)
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
[2021-03-21] MEDS: CHOLECALCIFEROL 25 MCG (1000 IU) TABLET PO SCH (08:59)
[2021-03-21] MEDS: metFORMIN 500 MG TAB PO SCH ×2 (08:59→17:06)
[2021-03-21] MEDS: LINAGLIPTIN 5 MG TABLET PO SCH (08:59)
[2021-03-21] MEDS: SODIUM CHLORIDE 0.9% 1,000 ML IV SCH ×4 (09:00→19:54)
[2021-03-21] MEDS ORDERED: levETIRAcetam 500 MG TAB PO SCH (09:00)
[2021-03-21] MEDS ORDERED: FAMOTIDINE 20 MG/2 ML VIAL IV SCH (09:00)
[2021-03-21] MEDS: HEPARIN SODIUM,PORCINE/PF 5,000 UNIT/0.5 ML SYRINGE SQ SCH ×2 (09:00→19:54)
[2021-03-21 10:23] LABS: African American GFR (CKD) 157.4 (60.0-200.0); Anion Gap 12.9 mmol/L (4.00-12.00); BUN/Creat Ratio 28.8 Ratio (12.00-20.00); Blood Urea Nitrogen 14.6 mg/dL (9.0-27.0); Calcium 9.5 mg/dL (8.7-10.3); Carbon Dioxide 24.6 mmol/L (21.6-31.8); Magnesium 1.8 mg/dL (1.5-2.4); Non-African American GFR(CKD) 135.8 (60.0-200.0); Potassium 4.3 mmol/L (3.5-5.5)
[2021-03-21] MEDS: levETIRAcetam IV 1,000 MG in SALINE 1 100ML.BAG IVPB SCH ×2 (13:55→23:34)
[2021-03-21] MEDS: FAMOTIDINE 20 MG TAB PO SCH (19:54)
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
[2021-03-22 02:05] VITALS: RESP 16
[2021-03-22] MEDS: metFORMIN 500 MG TAB PO SCH (07:52)
[2021-03-22] MEDS: CHOLECALCIFEROL 25 MCG (1000 IU) TABLET PO SCH (07:52)
[2021-03-22] MEDS: FAMOTIDINE 20 MG TAB PO SCH (07:53)
[2021-03-22] MEDS: HEPARIN SODIUM,PORCINE/PF 5,000 UNIT/0.5 ML SYRINGE SQ SCH (07:55)
[2021-03-22] MEDS: SODIUM CHLORIDE 0.9% 1,000 ML IV SCH ×2 (07:58→14:49)
[2021-03-22] MEDS: LINAGLIPTIN 5 MG TABLET PO SCH (08:13)
[2021-03-22 11:53] LABS: African American GFR (CKD) 170.2 (60.0-200.0); Albumin/Globulin Ratio 1.54 (1.60-3.17); Anion Gap 11.1 mmol/L (4.00-12.00); Blood Urea Nitrogen 11.2 mg/dL (9.0-27.0); Calcium 8.9 mg/dL (8.7-10.3); Carbon Dioxide 21.9 mmol/L (21.6-31.8); Globulin 2.6 g/dL (1.6-3.3); Magnesium 1.8 mg/dL (1.5-2.4); Non-African American GFR(CKD) 146.8 (60.0-200.0); Potassium 4.3 mmol/L (3.5-5.5); Total Bilirubin 0.3 mg/dL (0.30-1.20); Total Protein 6.6 g/dL (6.2-8.2)
[2021-03-22 11:54] LABS: Phosphorus 3.2 mg/dL (2.4-5.1)
[2021-03-22 11:55] LABS: Basophils # (A) 0.04 X 10*3/uL (0.00-0.10); Basophils % (A) 0.5 %; Eosinophils # (A) 0.33 X 10*3/uL (0.04-0.35); HCT 41.2 % (37.2-46.3); HGB 13.3 g/dL (12.0-15.0); Lymphocytes # (A) 3.05 X 10*3/uL (0.90-5.00); Lymphocytes % (A) 37.2 %; MCH 27.6 pg (27.0-32.0); MCHC 32.3 g/dL (32.0-37.0); MCV 85.5 fL (80.0-97.0); Mean Platelet Volume 10.4 fL (9.5-12.2); Monocytes # (A) 0.36 X 10*3/uL (0.20-1.00); Monocytes % (A) 4.4 %; Neutrophils # (A) 4.39 X 10*3/uL (1.80-7.70); Neutrophils % (A) 53.7 %; Platelet Count 485 X 10*3/uL (140-440); RBC 4.82 X 10*6/uL (4.10-5.20); RDW 12.9 % (11.5-14.5); WBC 8.19 X 10*3/uL (4.50-10.00)
[2021-03-22] MEDS ORDERED: INSULIN ASPART (NovoLOG) 100 UNIT/ML VIAL SQ SCH (12:30)
[2021-03-22 13:11] LABS: Glucose,Whole Blood 266 mg/dL (75-99)
[2021-03-22] MEDS: levETIRAcetam IV 1,000 MG in SALINE 1 100ML.BAG IVPB SCH (13:14)
--- NOTE | 2021-03-22 14:27 | P.PN ---
Subjective Progress Note Date: 03/22/21 I am seeing the patient for the first time. Please refer to Dr. Duggan's note for further details. Patient stated she has no further seizures since being in the hospital. She denied of any neurological problems. Objective - Vital Signs Vital signs: Vital Signs Temp 97.9 F 03/22/21 01:18 Pulse 80 03/22/21 08:15 Resp 16 03/22/21 01:18 BP 97/64 03/22/21 01:18 Pulse Ox 97 03/22/21 01:18 Intake & Output 03/21/21 03/22/21 03/22/21 18:59 06:59 18:59 Intake Total 460 Balance 460 Intake: Oral 460 Other: Voiding Method Toilet Toilet # Voids 3 - Exam GENERAL: The patient is lying in bed and is not in acute distress. NEUROLOGICAL: Higher mental function: The patient is awake, alert, oriented to self, place and time. Patient is following commands. No aphasia and no neglect. Cranial nerves: The pupils are round, equal and reactive to light and accommodation. Visual parra are full to confrontation throughout. Extraocular movement is intact no nystagmus is noted. Facial sensation is normal to touch throughout. The facial strength is normal throughout. Hearing is normal bilaterally to hand rub. Tongue is midline and moved [id number] without any difficulty. No dysarthria is noted. Shoulder shrug is normal bilaterally. Motor: Gait is deferred. The strength is 5 over 5 throughout. Normal tone and bulk. Cerebellum: Normal finger to nose heel to berkowitz bilaterally. Sensation: Sensation is normal to touch throughout. Reflexes (right/left): 2+ throughout. Plantars are downgoing bilaterally. WORK-UP: Serum glucose is 325 the last one prior to that was 295. Hemoglobin A1c is as she is 13.4 The calcium last is 9.5. The the magnesium is 1.8. AST is 75 and ALT of 89. Urine tox screen is nondetected. The Keppra level was 2.2 which is below therapeutic, acetaminophen <10.0, salicylates <1.0 Urine analysis: Seems suggestive of acute UTI Mina virus PCR is nondetected TSH: 3.70 - Labs CBC & Chem 7: 03/22/21 07:55 03/22/21 07:55 Labs: Abnormal Lab Results - Last 24 Hours (Table) 03/20/21 03/21/21 Range/Units 23:48 06:25 Hemoglobin A1c 13.4 H (4.0-6.0) % Levetiracetam 2.2 L (3.0-60.0) ug/mL Assessment and Plan Assessment: * 25-year-old female with history of seizure disorder, poorly controlled came with breakthrough seizures. Patient is having seizures once a week. Her last Keppra level was 2.0 (normal level is 3-60) on 11/21/2020 and stated she is compliant taking medication (keppra 500mg 1 tab bid). * Diabetes that is poorly controled * Mild elevated liver function test Plan: * Continue Keppra 1000 mg 1 tablet twice a day. * Two half hour EEG is ordered by Dr. Duggan and is pending to be done. * Patient was informed of [place] state law of no driving unless seizure free for 6 months, climbing ladders, operate dangerous machinery or unsupervised swimming. * Patient may follow-up with her neurologist (Dr. Olivares) as outpatient within 1- 2 weeks. Consider prolonged EEG as an outpatient (patient stated she is waiting for insurance authorization for that to happen). * We'll defer the rest of the medical management to the primary team. We'll try to obtain preliminary report from eeg and if no seizure, patient is clear for discharge. UPDATE: I was notified by Dr. Tian (epilepsy attending): He updated me that the 2 1/2 hour EEG is normal. There is no further neurological work-up and patient is clear from neurological perspective. Kemal Menon MD Neuro-Hospitalist Time with Patient: Less than 30
[2021-03-22 15:42] VITALS: BMI 41.7
[2021-03-22 16:00] VITALS: BP 113/69; PULSE 84; TEMP 98.1
--- NOTE | 2021-03-22 17:21 | EEG ---
ELECTROENCEPHALOGRAM REPORT DATE OF PROCEDURE: 03/22/2021. ELECTROENCEPHALOGRAM (EEG) REPORT: TECHNIQUE: This is a report from a prolonged 2-1/2-hour inpatient digital video EEG performed using the 10/20 international placement system. HISTORY: Seizures since the age of 4 or 6. Events include the patient having a feeling just before and then she will start shaking and pass out. Other medical history includes asthma, diabetes. CURRENT MEDICATIONS: Albuterol, Pepcid, heparin, Keppra, Zanaflex and others. FINDINGS: Recording start time: 03/22/2021 at 9:56 a.m. Recording end time: 03/22/2021 at 12:30 p.m. EVENTS: During this prolonged 2-1/2-hour patient digital EEG, no clinical or electrographic seizures were recorded. BACKGROUND: The background activity consisted of 9-10 hertz rhythmic waveforms symmetrically distributed through both posterior quadrants. ACTIVATION Hyperventilation: Not performed. Photic stimulation: Symmetric driving seen. Sleep: Stages I and II sleep noted. ABNORMALITIES: None. Please note that one channel of this EEG was dedicated to EKG. It demonstrated a sinus rhythm. IMPRESSION: Normal prolonged 2-1/2-hour inpatient digital video EEG. No clinical or electrographic seizures were recorded. No epileptiform activity was present. MMODL / IJN: [id number] /
--- NOTE | 2021-03-22 23:26 | P.DS ---
Providers Date of admission: 03/21/21 00:12 Attending physician: Saqib Jauregui MD Consults: 03/21/21 00:12 Consult Physician Routine Consulting Provider: Blayne Duggan Consult Reason/Comments: nati Do you want consulting provider notified?: Yes Primary care physician: Alok Polk Hospital Course: Final Diagnosis Breakthrough seizure Diabetes mellitus, with hyperglycemia, A1C 13.4 History of seizure disorder History of asthma, not an active issue History of depression/anxiety, PTSD and bipolar Morbid obesity BMI 41.7 Asymptomatic bacteriurea Discharge Disposition Patient was discharged home on an increase in keppra to 1000 mg po bid. She will f/u with her neurologist Dr Walters, PCP, and sanitary landfill supervisor Dr Reid. Patient is given scripts for CBC and BMP outpatient. Metformin was increased to 850 mg po BID. Hospital Course This is a pleasant 25 years old female with past medical history of Asthma, Diabetes Mellitus, Seizure Disorder, depression, anxiety, PTSD and bipolar. Patient is a known case of seizure since 2016, her neurologist is Dr. Walters , at [facility] in [place]. She last saw him about a month ago for follow-up, at that time she had MRI of the brain which results still pending. She is on Keppra 500 mg twice a day which she takes regularly. However since last month she has 3 episodes of seizure last one was yesterday when she was trying to find a tight for her boyfriend she had a seizure for 2-3 minutes, tonic or clonic, she bit her tongue with no urine or bowel incontinence. She had post ictal confusion for 10 minutes. She woke up in the ambulance, She denies chest pain or dyspnea. No abdominal pain. She has mild headache, no weakness or numbness. No blurred vision or slurred speech. Change in urine or bowel habits. No abdominal pain or vomiting. No diarrhea. No fever. She feels depressed but she denies suicidal or homicidal ideation. She is anxious as well Denies smoking, no illicit drugs. Occasional alcohol Medications include metformin 500 mg and Januvia, as well as lantus 30 units HS, and humalog 15 units with meals. Labs show an unremarkable CBC except for mildly elevated WBC at 12.3 which is chronic. Platelets elevated 541. Sodium 135, creatinine normal at 0.4. Glucose elevated to 95. Calcium 10.3. Magnesium was low at 1.5. Liver enzymes are slightly elevated with AST 75 and ALT 89. Bilirubin is normal 0.3. Salicylate and acetaminophen are negative. TSH 1.54. UA completed showed large leukocyte esterase, cloudy, 29 WBC and many bacteria. However, patient denies any dysuria, burning, urgency, or frequency. Urine HCG was negative. Recommend f/u UA outpatient if she becomes symptomatic. Patient was evaluated by neurology, who recommened a continues EEG. EEG results include a normal prolonged 2-2.5 hours inpatient digital video EEG. There were no clinical or electrographic seizures that were recorded. No epileptiform activity was noted. Neurology recommended to increase keppra and to f/u with her nuerologist outpatient. Vital signs are stable, temp of 98.1, heart rate of 84, and a blood pressure of 113/69. 97% on room air. 03/22/2021 Patient is evaluated in her room after EEG. She denies any chest pain, palpitaions. She denies any n/v.d. She denies any dizziness, lightheadedness, blurry vision, or focal neurological deficits. vital signs are stable, blood count panel is unremarkable, electrolytes have normalized, BS has trended down into the 200s. Lungs are clear to auscultation, S1 and S2 auscultated. Pt is alert and oriented x 3. She is agreeable to DC plan. Patient was informed of [facility] law of no driving unless seizure free for 6 months, climbing ladders, operate dangerous machinery or unsupervised swimming. Please see medication reconciliation for a list of current medications. Thank you for allowing us to participate in the care of this patient. Patient Condition at Discharge: Good Plan - Discharge Summary New Discharge Prescriptions: New metFORMIN HCL [Glucophage] 850 mg PO BID #60 tab Continue sitaGLIPtin [Januvia] 100 mg PO DAILY tiZANidine [Zanaflex] 4 mg PO HS PRN PRN Reason: Pain Cholecalciferol [Vitamin D3 (25 Mcg = 1000 Iu)] 50 mcg PO DAILY Loratadine 10 mg PO DAILY diazePAM [Diazepam] 2 mg PO DAILY PRN PRN Reason: Anxiety Insulin Lispro [humaLOG Kwikpen] 15 unit SQ AC-TID Cariprazine HCl [Vraylar] 1.5 mg PO DAILY Insulin Glargine,Hum.rec.anlog [Lantus Solostar Pen] 30 unit SQ HS Albuterol Sulfate [Proair Hfa] 2 puff INHALATION RT-QID PRN PRN Reason: Shortness Of Breath Diclofenac Sodium [Voltaren] 75 mg PO BID Changed levETIRAcetam [Keppra] 1,000 mg PO Q12HR #120 tab Discontinued metFORMIN HCL ER [Glucophage XR] 500 mg PO DAILY Discharge Medication List Insulin Glargine,Hum.rec.anlog [Lantus Solostar Pen] 30 unit SQ HS 12/10/20 [History] sitaGLIPtin [Januvia] 100 mg PO DAILY 12/10/20 [History] Albuterol Sulfate [Proair Hfa] 2 puff INHALATION RT-QID PRN 01/14/21 [History] Diclofenac Sodium [Voltaren] 75 mg PO BID 01/14/21 [History] tiZANidine [Zanaflex] 4 mg PO HS PRN 01/14/21 [History] Cariprazine HCl [Vraylar] 1.5 mg PO DAILY 03/21/21 [History] Cholecalciferol [Vitamin D3 (25 Mcg = 1000 Iu)] 50 mcg PO DAILY 03/21/21 [History] Insulin Lispro [humaLOG Kwikpen] 15 unit SQ AC-TID 03/21/21 [History] Loratadine 10 mg PO DAILY 03/21/21 [History] diazePAM [Diazepam] 2 mg PO DAILY PRN 03/21/21 [History] levETIRAcetam [Keppra] 1,000 mg PO Q12HR #120 tab 03/22/21 [Rx] metFORMIN HCL [Glucophage] 850 mg PO BID #60 tab 03/22/21 [Rx] Follow up Appointment(s)/Referral(s): Felicitas Dickinson MD [Primary Care Provider] - 1-2 days Lorelei Walters MD [REFERRING] - 1 Week Ambulatory/Diagnostic Orders: Basic Metabolic Panel [LAB.AMB] Time Frame: 2 Days, Location: None Selected Complete Blood Count w/diff [LAB.AMB] Time Frame: 2 Days, Location: None Selected Patient Instructions/Handouts: Seizure/Epilepsy Discharge Instructions & Follow -Up Activity/Diet/Wound Care/Special Instructions: Patient is to follow-up with her sanitary landfill supervisor Dr. Reid Discharge Disposition: HOME SELF-CARE
== END 2021-03-22 17:56 | disposition home or self-care (01) ==
LOC: EC 23:13 → 6NMEDSUR 03-21 00:12
PROVIDERS: ADMIT Internal Medicine; ATTEND Internal Medicine
DX: G40.909 Epilepsy, unspecified, not intractable, without status epilepticus (principal); E11.65 Type 2 diabetes mellitus with hyperglycemia; R82.71 Bacteriuria; D72.829 Elevated white blood cell count, unspecified; D47.3 Essential (hemorrhagic) thrombocythemia; R74.01 Elevation of levels of liver transaminase levels; J45.909 Unspecified asthma, uncomplicated; F31.9 Bipolar disorder, unspecified; F43.10 Post-traumatic stress disorder, unspecified; F41.9 Anxiety disorder, unspecified; E66.01 Morbid (severe) obesity due to excess calories; Z68.41 Body mass index [BMI] 40.0-44.9, adult; F17.290 Nicotine dependence, other tobacco product, uncomplicated; Z20.822 Contact with and (suspected) exposure to COVID-19; Z79.84 Long term (current) use of oral hypoglycemic drugs; Z79.1 Long term (current) use of non-steroidal anti-inflammatories (NSAID); Z79.4 Long term (current) use of insulin; Z79.899 Other long term (current) drug therapy; Z88.0 Allergy status to penicillin; Z91.040 Latex allergy status; Z82.0 Family history of epilepsy and other diseases of the nervous system
CPT/HCPCS: 96376 ×3; 96361 ×3; 96372 ×3; 96365; 96375; 99285; 36415; 94640; 95713; 80053 ×2; 80048; 80177; 84443; 82550; 83735 ×2; 84100; 85025 ×2; 81001; 81025; 80306; 80143; 83036; 87635; 80179; G0378 ×2; J1953 ×2; J1644 ×2

== ENCOUNTER 2023-10-01 01:20 | Emergency (ER) | payer OTHER ==
[2023-10-01 01:59] VITALS: BP 138/79; PULSE 81; RESP 19; TEMP 97.7
[2023-10-01 02:15] LABS: Basophils # (A) 0.1 k/uL (0-0.2); Basophils % (A) 1 %; Eosinophils # (A) 0.4 k/uL (0-0.7); Eosinophils % (A) 4 %; HCT 38.6 % (34.0-46.0); HGB 12.7 gm/dL (11.4-16.0); Lymphocytes # (A) 4.6 k/uL (1.0-4.8); Lymphocytes % (A) 37 %; MCH 27.2 pg (25.0-35.0); MCHC 32.8 g/dL (31.0-37.0); MCV 82.9 fL (80.0-100.0); Mean Platelet Volume 7.6; Monocytes # (A) 0.6 k/uL (0-1.0); Monocytes % (A) 4 %; Neutrophils # (A) 6.6 k/uL (1.3-7.7); Neutrophils % (A) 53 %; Platelet Count 534 k/uL (150-450); RBC 4.66 m/uL (3.80-5.40); RDW 13.7 % (11.5-15.5); WBC 12.4 k/uL (3.8-10.6)
--- NOTE | 2023-10-01 02:49 | ED ---
Female Urogenital HPI - General Source: patient, RN notes reviewed Mode of arrival: ambulatory <Pa Yanes - Last Filed: 10/01/23 02:49> <Ehsan Dowd - Last Filed: 10/10/23 13:44> - General Chief complaint: Vaginal Bleeding Stated complaint: Vaginal bleeding, blood clots Time Seen by Provider: 10/01/23 02:45 - History of Present Illness Initial comments: 27-year-old female presented to the ED with complaints of vaginal bleeding. With some associated lower abdominal cramping. States that she has gone through 10 pads/tampons today. No fever or chills. No lightheadedness. (Pa Yanes) - Related Data Home Medications Medication Instructions Recorded Confirmed Insulin Glargine,Hum.rec.anlog 30 unit SQ HS 12/10/20 03/21/21 [Lantus Solostar Pen] sitaGLIPtin [Januvia] 100 mg PO DAILY 12/10/20 03/21/21 Albuterol Sulfate [Proair Hfa] 2 puff INHALATION RT-QID PRN 01/14/21 03/21/21 Diclofenac Sodium [Voltaren] 75 mg PO BID 01/14/21 03/21/21 tiZANidine [Zanaflex] 4 mg PO HS PRN 01/14/21 03/21/21 Cariprazine HCl [Vraylar] 1.5 mg PO DAILY 03/21/21 03/21/21 Cholecalciferol [Vitamin D3 (25 50 mcg PO DAILY 03/21/21 03/21/21 Mcg = 1000 Iu)] Insulin Lispro [humaLOG Kwikpen] 15 unit SQ AC-TID 03/21/21 03/21/21 Loratadine 10 mg PO DAILY 03/21/21 03/21/21 diazePAM 2 mg PO DAILY PRN 03/21/21 03/21/21 Previous Rx's Medication Instructions Recorded levETIRAcetam [Keppra] 1,000 mg PO Q12HR #120 tab 03/22/21 metFORMIN HCL [Glucophage] 850 mg PO BID #60 tab 03/22/21 Allergies Allergy/AdvReac Type Severity Reaction Status Date / Time Latex, Natural Rubber Allergy Rash/Hives Verified 10/01/23 01:30 Penicillins Allergy Unknown Verified 10/01/23 01:30 Review of Systems ROS Other: All systems not noted in ROS Statement are negative. <Pa Yanes - Last Filed: 10/01/23 02:49> ROS Other: All systems not noted in ROS Statement are negative. <Ehsan Dowd - Last Filed: 10/10/23 13:44> ROS Statement: Those systems with pertinent positive or pertinent negative responses have been documented in the HPI. Past Medical History Past Medical History: Asthma, Diabetes Mellitus, Seizure Disorder Additional Past Medical History / Comment(s): anxiety History of Any Multi-Drug Resistant Organisms: None Reported Past Surgical History: Tonsillectomy Past Anesthesia/Blood Transfusion Reactions: No Reported Reaction Past Psychological History: Anxiety, Bipolar, Depression, PTSD Smoking Status: Current some day smoker, Vaper Past Alcohol Use History: None Reported Past Drug Use History: None Reported <Pa Yanes - Last Filed: 10/01/23 02:49> General Exam <Pa Yanes - Last Filed: 10/01/23 02:49> - General Exam Comments Initial Comments: Visual Physical Exam Vital signs reviewed General: Well-appearing, nontoxic, no acute distress. Head: Normocephalic, atraumatic Eyes: PERRLA, EOMI ENT: Airway patent Chest: Nonlabored breathing Skin: No visual rash, normal skin tone Neuro: Alert and oriented 3 Musculoskeletal: No gross abnormalities (Pa Yanes) Course Vital Signs 10/01/23 01:23 Temperature 97.7 F Pulse Rate 81 Respiratory 19 Rate Blood Pressure 138/79 O2 Sat by Pulse 98 Oximetry Medical Decision Making - Lab Data Result diagrams: 10/01/23 02:00 <Pa Yanes - Last Filed: 10/01/23 02:49> - Lab Data Result diagrams: 10/01/23 02:00 <Ehsan Dowd - Last Filed: 10/10/23 13:44> - Medical Decision Making Quicknote portion performed. Signed Pa Yanes PA-C (Pa Yanes) - Lab Data Lab Results 10/01/23 10/01/23 Range/Units 02:00 02:00 WBC 12.4 H (3.8-10.6) k/uL RBC 4.66 (3.80-5.40) m/uL Hgb 12.7 (11.4-16.0) gm/dL Hct 38.6 (34.0-46.0) % MCV 82.9 (80.0-100.0) fL MCH 27.2 (25.0-35.0) pg MCHC 32.8 (31.0-37.0) g/dL RDW 13.7 (11.5-15.5) % Plt Count 534 H (150-450) k/uL MPV 7.6 Neutrophils % 53 % Lymphocytes % 37 % Monocytes % 4 % Eosinophils % 4 % Basophils % 1 % Neutrophils # 6.6 (1.3-7.7) k/uL Lymphocytes # 4.6 (1.0-4.8) k/uL Monocytes # 0.6 (0-1.0) k/uL Eosinophils # 0.4 (0-0.7) k/uL Basophils # 0.1 (0-0.2) k/uL HCG, Qual Not Detected Disposition <Pa Yanes - Last Filed: 10/01/23 02:49> <Ehsan Dowd - Last Filed: 10/10/23 13:44> Clinical Impression: Vaginal bleeding Disposition: LEFT AGAINST MEDICAL ADVICE Referrals: Suzanne Peña [Primary Care Provider] - 1-2 days
== END 2023-10-01 05:10 | disposition left against medical advice (07) ==
LOC: EC 01:20
DX: N93.9 Abnormal uterine and vaginal bleeding, unspecified (principal); F17.290 Nicotine dependence, other tobacco product, uncomplicated; Z91.040 Latex allergy status; Z88.0 Allergy status to penicillin; Z53.29 Procedure and treatment not carried out because of patient's decision for other reasons
CPT/HCPCS: 36415; 84703; 85025; 99283